=== PATIENT | male | born 1985 | race Caucasian/White ===

== ENCOUNTER 2023-02-21 18:23 | Emergency (ER) | payer BC, SELFPAY ==
[2023-02-21 18:43] VITALS: BP 139/99; PULSE 81; RESP 16; TEMP 36.4; O2SAT 99; BMI 33.8
--- NOTE | 2023-02-21 19:05 | XR_ITS ---
The [address] [address] Patient Name: LEXI WESTBROOK MRN: [id number] date: 1985 Sex: M Assigned Patient Location: ER Current Patient Location: ED.MAIN Accession/Order Number: [id number] Exam Date: 02/21/2023 19:12 Report Date: 02/21/2023 19:55 At the request of: PONCHO CANSECO Procedure: XR hand LT min 3V EXAM: XR hand LT min 3V HISTORY: injury to left hand COMPARISON: None. TECHNIQUE: 3 views of the left hand FINDINGS: No acute fracture is seen. Joint alignment is normal. Joint spaces are preserved. Soft tissues appear unremarkable. XR/XR hand LT min 3V IMPRESSION: No acute fracture or malalignment. Electronically authenticated by: DILLON SYKES Date: 02/21/2023 19:55
--- NOTE | 2023-02-21 19:26 | ED_ITS ---
HPI - Extremity Injury (Upper) General Chief Complaint: Extremity Injury, Upper Stated Complaint: Upper Extremity Injury Time Seen by Provider: 02/21/23 19:22 Source: patient Mode of arrival: walk-in Limitations: no limitations History of Present Illness HPI narrative: 37-year-old male presents for an injury to his left middle finger. It was sustained when he got his finger caught in a dane yesterday. He noted a lot of bruising below the fingernail. The pain is mild. It feels like pressure and it's continuous. No other injury was sustained. He is right-handed. Related Data Home Medications Medication Instructions Recorded Confirmed fluticasone furoate 100 1 inh inhalation Q24H 02/21/23 02/21/23 mcg-vilanterol 25 mcg/dose inhalation powder (Breo Ellipta) montelukast 10 mg tablet 10 mg PO DAILY 02/21/23 02/21/23 omeprazole 20 mg capsule,delayed 20 mg PO DAILY 02/21/23 02/21/23 release Allergies Allergy/AdvReac Type Severity Reaction Status Date / Time No Known Drug Allergies Allergy Verified 02/21/23 18:42 Review of Systems ROS Narrative A ten point review of systems is negative except as noted above. PFSH PFSH Social History Smoking status: Never smoker Exam Narrative Exam Narrative: Nurses note and vital signs reviewed and patient is not hypoxic. General: The patient appears well and in no apparent distress. Patient is resting comfortably in the chair. Skin: Warm, dry, no pallor noted. There is no rash noted. Head: Normocephalic, atraumatic Eye: Normal conjunctiva, no drainage Ears, Nose, Mouth, and Throat: oral mucosa is moist. Nares patent. Cardiovascular: Regular Rate and Rhythm Respiratory: Patient is in no distress, no accessory muscle use Back: non-tender GI: nontender Musculoskeletal: left middle finger has subungual hematoma. No swelling on the finger pad. Neurological: A&O, normal speech Psychiatric: Cooperative Constitutional Vital Signs, click to edit/add: Last Vital Signs Temp 97.5 F L 02/21/23 18:43 Pulse 81 02/21/23 18:43 Resp 16 02/21/23 18:43 BP 139/99 H 02/21/23 18:43 Pulse Ox 99 02/21/23 18:43 O2 Del Method Room Air 02/21/23 18:43 Course Vital Signs Vital signs: Vital Signs Temperature 97.5 F L 02/21/23 18:43 Pulse Rate 81 02/21/23 18:43 Respiratory Rate 16 02/21/23 18:43 Blood Pressure 139/99 H 02/21/23 18:43 Pulse Oximetry 99 02/21/23 18:43 Oxygen Delivery Method Room Air 02/21/23 18:43 Temperature 97.5 F L 02/21/23 18:43 Pulse Rate 81 02/21/23 18:43 Respiratory Rate 16 02/21/23 18:43 Blood Pressure 139/99 H 02/21/23 18:43 Pulse Oximetry 99 02/21/23 18:43 Oxygen Delivery Method Room Air 02/21/23 18:43 MDM - Extremity Injury (Upper) MDM Narrative Medical decision making narrative: X-ray shows no fracture. The subungual hematoma has been drained. Treatment d iagnosis and follow-up were discussed with the patient. Differential Diagnosis Differential diagnosis: Likely other (finger fracture, finger contusion, subungual hematoma) Imaging Data left hand x-ray: Radiologist's impression: Procedure: XR hand LT min 3V EXAM: XR hand LT min 3V HISTORY: injury to left hand COMPARISON: None. TECHNIQUE: 3 views of the left hand FINDINGS: No acute fracture is seen. Joint alignment is normal. Joint spaces are preserved. Soft tissues appear unremarkable. IMPRESSION: No acute fracture or malalignment. Electronically authenticated by: DILLON SYKES Date: 02/21/2023 19:55 Discharge Plan Discharge Chief Complaint: Extremity Injury, Upper Clinical Impression: Subungual hematoma of finger of left hand Patient Disposition: Home, Self-Care Time of Disposition Decision: 20:12 Condition: Good Mode of Transportation: Private Vehicle Prescriptions / Home Meds: No Action fluticasone furoate-vilanterol [Breo Ellipta] 100-25 mcg/dose blister with device 1 inh INHALATION Q24H montelukast 10 mg tablet 10 mg PO DAILY omeprazole 20 mg capsule,delayed release(DR/EC) 20 mg PO DAILY Instructions: Subungual Hematoma (ED) Stand Alone Forms: Portal Instructions Referrals: Fany Bergman [Primary Care Provider] - 1 week Procedures ED Procedure Instructions Procedures Procedures: The following procedure was performed by me. A call bite was carried out to the fingernail of the left 3rd finger an electric cautery device was used to trephinate the nail. Blood was extracted and the patient felt much better. No complications.
== END 2023-02-21 20:37 | disposition home or self-care (01) ==
PROVIDERS: Emergency Provider Emergency Medicine; PCP Nurse Practitioner
DX: S60.132A Contusion of left middle finger with damage to nail, initial encounter (principal); W23.0XXA Caught, crushed, jammed, or pinched between moving objects, initial encounter; Z79.899 Other long term (current) drug therapy
CPT/HCPCS: 11740; 73130; 99283

== ENCOUNTER 2023-07-11 07:55 | Emergency (ER) | payer OTHER, SELFPAY ==
[2023-07-11 08:00] VITALS: BP 138/92; PULSE 90; RESP 18; TEMP 36.4; O2SAT 98; BMI 33.5
--- NOTE | 2023-07-11 08:07 | XR_ITS ---
The [address] [address] Patient Name: LEXI WESTBROOK MRN: [id number] date: 1985 Sex: M Assigned Patient Location: ED.MAIN Current Patient Location: Accession/Order Number: [id number] Exam Date: 07/11/2023 08:15 Report Date: 07/11/2023 08:29 At the request of: PONCHO CANSECO Procedure: XR shoulder LT min 2V EXAM: XR shoulder LT min 2V INDICATION: Pain after lifting weights. COMPARISON: None. TECHNIQUE: Left shoulder, 3 views. FINDINGS: No acute fracture or dislocation. Intact glenohumeral joint. Mild degenerative changes of the acromioclavicular joint. Unremarkable soft tissues. XR/XR shoulder LT min 2V IMPRESSION: 1. No acute osseous abnormality of the left shoulder. 2. Mild degenerative changes of the AC joint. Electronically authenticated by: FANY NEWBY Date: 07/11/2023 08:29
--- NOTE | 2023-07-11 08:08 | ED.UPPEXIN1 ---
HPI - Extremity Injury (Upper) General Chief Complaint: Extremity Injury, Upper Stated Complaint: SHOULDER PAIN Time Seen by Provider: 07/11/23 08:00 Mode of arrival: walk-in History of Present Illness HPI narrative: 37-year-old male presents to the emergency department for left shoulder pain. It started about 2 weeks ago when he was lifting weights at the gym. He points to the anterior left shoulder. He did not fall and nothing hit him in that area. It is going up towards his neck and into the deltoid area as well now. Movement makes it worse. No chest pain or shortness of breath. Related Data Home Medications Medication Instructions Recorded Confirmed fluticasone furoate 100 1 inh inhalation Q24H 02/21/23 02/21/23 mcg-vilanterol 25 mcg/dose inhalation powder (Breo Ellipta) montelukast 10 mg tablet 10 mg PO DAILY 02/21/23 02/21/23 omeprazole 20 mg capsule,delayed 20 mg PO DAILY 02/21/23 02/21/23 release Previous Rx's Medication Instructions Recorded ibuprofen 800 mg tablet 800 mg PO Q8H PRN pain #20 tabs 07/11/23 methocarbamol 500 mg tablet 500 mg PO Q8H PRN pain #20 tabs 07/11/23 Allergies Allergy/AdvReac Type Severity Reaction Status Date / Time No Known Drug Allergies Allergy Verified 02/21/23 18:42 Review of Systems ROS Narrative A ten point review of systems is negative except as noted above. PFSH PFSH Social History Smoking status: Never smoker Exam Narrative Exam Narrative: Nurses note and vital signs reviewed and patient is not hypoxic. General: The patient appears well and in no apparent distress. Patient is resting comfortably on cart. Skin: Warm, dry, no pallor noted. There is no rash noted. Head: Normocephalic, atraumatic Eye: Normal conjunctiva, no drainage Ears, Nose, Mouth, and Throat: oral mucosa is moist. Nares patent. Cardiovascular: Regular Rate and Rhythm Respiratory: Patient is in no distress, no accessory muscle use, lungs are clear to auscultation, no wheezing, rales or rhonchi Back: non-tender including the cervical spine GI: Soft and nontender Musculoskeletal: The left shoulder has no bruise or swelling or erythema. He has some mild tenderness to palpation anteriorly. It has full range of motion. Radial pulse 2+ and fingers have full range of motion. Neurological: A&O, normal speech Psychiatric: Cooperative Constitutional Vital Signs, click to edit/add: Last Vital Signs Temp 97.6 F 07/11/23 08:00 Pulse 90 07/11/23 08:00 Resp 18 07/11/23 08:00 BP 138/92 H 07/11/23 08:00 Pulse Ox 98 07/11/23 08:00 O2 Del Method Room Air 07/11/23 08:00 Course Vital Signs Vital signs: Vital Signs Temperature 97.6 F 07/11/23 08:00 Pulse Rate 90 07/11/23 08:00 Respiratory Rate 18 07/11/23 08:00 Blood Pressure 138/92 H 07/11/23 08:00 Pulse Oximetry 98 07/11/23 08:00 Oxygen Delivery Method Room Air 07/11/23 08:00 Temperature 97.6 F 07/11/23 08:00 Pulse Rate 90 07/11/23 08:00 Respiratory Rate 18 07/11/23 08:00 Blood Pressure 138/92 H 07/11/23 08:00 Pulse Oximetry 98 07/11/23 08:00 Oxygen Delivery Method Room Air 07/11/23 08:00 MDM - Extremity Injury (Upper) MDM Narrative Medical decision making narrative: X-ray findings are discussed with the patient. He will be treated symptomatically and he was given an appointment to see Dr. Clayton tomorrow. Treatment diagnosis and follow-up were discussed with the patient. Differential Diagnosis Differential diagnosis: Likely other (Shoulder sprain, shoulder strain, shoulder fracture, degenerative arthritis) Imaging Data Left shoulder: Radiologist's impression: ITS Impressions Shoulder X-Ray 07/11/23 08:07 IMPRESSION: 1. No acute osseous abnormality of the left shoulder. 2. Mild degenerative changes of the AC joint. Electronically authenticated by: FANY NEWBY Date: 07/11/2023 08:29 Discharge Plan Discharge Chief Complaint: Extremity Injury, Upper Clinical Impression: Acute shoulder pain Patient Disposition: Home, Self-Care Time of Disposition Decision: 08:38 Condition: Good Mode of Transportation: Private Vehicle Prescriptions / Home Meds: New ibuprofen 800 mg tablet 800 mg PO Q8H PRN (Reason: pain) Qty: 20 0RF methocarbamol 500 mg tablet 500 mg PO Q8H PRN (Reason: pain) Qty: 20 0RF No Action fluticasone furoate-vilanterol [Breo Ellipta] 100-25 mcg/dose blister with device 1 inh INHALATION Q24H montelukast 10 mg tablet 10 mg PO DAILY omeprazole 20 mg capsule,delayed release(DR/EC) 20 mg PO DAILY Instructions: Shoulder Pain (ED) Additional Instructions: You have an appointment with Dr. Clayton on July 12 at 11 AM. Stand Alone Forms: Portal Instructions Referrals: Fany Bergman NP [Primary Care Provider] - 1 week
== END 2023-07-11 08:47 | disposition home or self-care (01) ==
PROVIDERS: Emergency Provider Emergency Medicine; PCP Nurse Practitioner
DX: M25.512 Pain in left shoulder (principal); Z79.899 Other long term (current) drug therapy
CPT/HCPCS: 73030; 99283

== ENCOUNTER 2023-12-04 16:42 | Emergency (ER) | payer OTHER, SELFPAY ==
[2023-12-04 16:50] VITALS: BP 142/87; PULSE 72; TEMP 36.8; O2SAT 100; BMI 32.5
--- NOTE | 2023-12-04 16:57 | PC.NURSE ---
top back left tooth has a small black area to the inside. gum does not appear inflamed and no drainage. left cheek is slightly swelling and pt reports this is painful.
--- NOTE | 2023-12-04 17:09 | ED.DENTAL1 ---
HPI - Dental/Oral General Chief complaint: Dental/Oral Stated complaint: Dental Pain, Facial Swelling Time Seen by Provider: 12/04/23 17:03 Source: patient Mode of arrival: walk-in History of Present Illness HPI Narrative: Patient presenting to us with a dental pain mostly in the left upper tooth he mentioned that the pain is radiating to his left ear as well as his maxillary area, he denies any fall trauma or any other concerns he did mention that he is supposed to see his dentist next week Related Data Home Medications ?Medication ?Instructions ?Recorded ?Confirmed montelukast 10 mg tablet 10 mg PO DAILY 02/21/23 12/04/23 Previous Rx's ?Medication ?Instructions ?Recorded amoxicillin 875 mg-potassium 1 tab PO Q12H #14 tabs 12/04/23 clavulanate 125 mg tablet Allergies Allergy/AdvReac Type Severity Reaction Status Date / Time No Known Drug Allergies Allergy Verified 02/21/23 18:42 Review of Systems ROS Status of ROS 10 or more systems reviewed and unremarkable except as noted in history and below PFSH PFSH Social History Smoking status: Never smoker Exam Narrative Exam Narrative: Dental exam showed that the patient have a good dental hygiene although he does have inflamed gum just above the tooth #13 with mild decay and the patient have some tenderness upon palpation of the maxillary area with no significant swelling The patient otherwise showed no acute pathology Nurses notes and vital signs reviewed and patient is not hypoxic. General: Well-appearing and in no apparent distress. Skin: Warm, dry, no pallor noted. No rash. Head: Normocephalic, atraumatic. Neck: Supple, non-tender. Eye: Pupils are equal, round and EOMI. No scleral icterus. Ears, Nose, Mouth, and Throat: TM are clear, no nasal mucosal hypertrophy. Oral mucosa is moist, no posterior oropharynx erythema, uvula is mid-line Cardiovascular: Regular Rate and Rhythm without murmur, gallop or rub. Respiratory: No accessory muscle use or respiratory distress. Lungs are clear to auscultation, no wheezing, rales or rhonchi Chest Wall: no tenderness Back: No midline thoracic or lumbar vertebral tenderness. No CVA tenderness . Neurological: A&O x4. No cranial nerve dysfunction observed. No truncal ataxia. Moves all extremities. Sensation intact. Psychiatric: Cooperative and interactive. Normal mood and affect. Constitutional Vital Signs, click to edit/add: Last Vital Signs Temp 98.2 F 12/04/23 16:50 Pulse 72 12/04/23 16:50 Resp 14 12/04/23 16:50 BP 142/87 H 12/04/23 16:50 Pulse Ox 100 12/04/23 16:50 O2 Del Method Room Air 12/04/23 16:50 Course Vital Signs Vital signs: Vital Signs Temperature 98.2 F 12/04/23 16:50 Pulse Rate 72 12/04/23 16:50 Respiratory Rate 14 12/04/23 16:50 Blood Pressure 142/87 H 12/04/23 16:50 Pulse Oximetry 100 12/04/23 16:50 Oxygen Delivery Method Room Air 12/04/23 16:50 Temperature 98.2 F 12/04/23 16:50 Pulse Rate 72 12/04/23 16:50 Respiratory Rate 12/04/23 16:50 Blood Pressure 142/87 H 12/04/23 16:50 Pulse Oximetry 100 12/04/23 16:50 Oxygen Delivery Method Room Air 12/04/23 16:50 MDM - Dental/Oral MDM Narrative Medical decision making narrative: The patient right now presented with a dental pain mostly secondary to dental infection Patient was treated in the ER with a dose of Toradol and he is to continue using ibuprofen at home Patient also will be treated with local numbing medication in the ER discharged home with Augmentin Patient to make sure he follow-up with his dentist The patient is to follow up with primary care physician in next 2-3 days or to return to the emergency department should any of the signs or symptoms worsen or new symptoms develop. The patient agrees with the following Diagnosis and Treatment plan and the patient will be discharged home. Discharge Plan Discharge Stand Alone Forms: Portal Instructions Chief Complaint: Dental/Oral Clinical Impression: Dental abscess Patient Disposition: Home, Self-Care Time of Disposition Decision: 17:12 Condition: Good Prescriptions / Home Meds: New amoxicillin-pot clavulanate 875-125 mg tablet 1 tab PO Q12H Qty: 14 0RF No Action montelukast 10 mg tablet 10 mg PO DAILY Print Language: Beninese Instructions: Dental Abscess (ED) Referrals: Fany Bergman NP [Primary Care Provider] - 1 week
[2023-12-04] MEDS: BENZOCAINE 30 ML, lidocaine HCL 15 ML MM (17:36)
[2023-12-04] MEDS: KETOROLAC TROMETHAMINE 60 MG/2 ML VIAL IM (17:37)
[2023-12-04] MEDS: AMOXICILLIN/POTASSIUM CLAV 1 TAB TABLET PO (17:38)
[2023-12-04 17:44] VITALS: BP 137/100; PULSE 82; O2SAT 98
== END 2023-12-04 17:45 | disposition home or self-care (01) ==
PROVIDERS: Emergency Provider Emergency Medicine; PCP Nurse Practitioner
DX: K04.7 Periapical abscess without sinus (principal)
CPT/HCPCS: 96372; 99284; J1885

== ENCOUNTER 2024-02-16 20:35 | Emergency (ER) | payer OTHER, SELFPAY ==
[2024-02-16 20:38] VITALS: BP 158/98; PULSE 100; TEMP 36.6; O2SAT 98; BMI 34.5
--- OUTSIDE RECORDS SUMMARY | 2024-02-16 20:47 | XMS_ITS | CCD ---
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 Name Role Phone NO FAMILY PHYSICIAN Primary Care Unavailable Nubia Bello Admitting Unavailable Nubia Bello Attending Unavailable AICHHOLZ, TERRESTRIAL ECOLOGIST ALISIA Primary Care Unavailable AICHHOLZ, TERRESTRIAL ECOLOGIST ALISIA Admitting Unavailable AICHHOLZ, TERRESTRIAL ECOLOGIST ALISIA Attending Unavailable AICHHOLZ, TERRESTRIAL ECOLOGIST ALISIA Consulting Unavailable AICHHOLZ, TERRESTRIAL ECOLOGIST ALISIA Primary Care Unavailable AICHHOLZ, TERRESTRIAL ECOLOGIST ALISIA Admitting Unavailable AICHHOLZ, TERRESTRIAL ECOLOGIST ALISIA Attending Unavailable AICHHOLZ, TERRESTRIAL ECOLOGIST ALISIA Consulting Unavailable DR HEBER BANUELOS Consulting Unavailable AICHHOLZ, TERRESTRIAL ECOLOGIST ALISIA Admitting Unavailable AICHHOLZ, TERRESTRIAL ECOLOGIST ALISIA Attending Unavailable AICHHOLZ, TERRESTRIAL ECOLOGIST ALISIA Consulting Unavailable AICHHOLZ, TERRESTRIAL ECOLOGIST ALISIA Primary Care Unavailable SY COTTON Consulting Unavailable AICHHOLZ, TERRESTRIAL ECOLOGIST ALISIA Admitting Unavailable AICHHOLZ, TERRESTRIAL ECOLOGIST ALISIA Primary Care Unavailable AICHHOLZ, TERRESTRIAL ECOLOGIST ALISIA Attending Unavailable AICHHOLZ, TERRESTRIAL ECOLOGIST ALISIA Consulting Unavailable AICHHOLZ, TERRESTRIAL ECOLOGIST ALISIA Admitting Unavailable AICHHOLZ, TERRESTRIAL ECOLOGIST ALISIA Attending Unavailable AICHHOLZ, TERRESTRIAL ECOLOGIST ALISIA Primary Care Unavailable KAITLYNN, ANGÉLICA Admitting Unavailable ANGÉLICA CALDERÓN Attending Unavailable KAITLYNN, ANGÉLICA Consulting Unavailable AICHHOLZ, TERRESTRIAL ECOLOGIST ALISIA Primary Care Unavailable LUIS ARMANDO ., REFUGIO Admitting Unavailable LUIS ARMANDO ., REFUGIO Attending Unavailable LUIS ARMANDO ., REFUGIO Consulting Unavailable AICHHOLZ, TERRESTRIAL ECOLOGIST ALISIA Primary Care Unavailable AICHHOLZ, TERRESTRIAL ECOLOGIST ALISIA Admitting Unavailable AICHHOLZ, TERRESTRIAL ECOLOGIST ALISIA Attending Unavailable AICHHOLZ, TERRESTRIAL ECOLOGIST ALISIA Consulting Unavailable AICHHOLZ, TERRESTRIAL ECOLOGIST ALISIA Primary Care Unavailable Freddy CUMMINS Attending Unavailable AICHHOLZ, ALISIA Attending Unavailable AICHHOLZ, ALISIA Attending Unavailable Problems Active Problems Problem Classification Problem Date Documented Date Episodic/Chronic Asthma (1 source) Unspecified asthma, uncomplicated; Translations: [UNSPECIFIED ASTHMA UNCOMPLICATED] Onset: 06-01-2022 Chronic Headache; including migraine (3 sources) Headache; including migraine; Translations: [HEADACHE UNSPECIFIED] Onset: 09-30-2021 Malaise and fatigue (4 sources) Other fatigue; Translations: [OTHER FATIGUE] Onset: 06-16-2022 Episodic Nonspecific chest pain (5 sources) Chest pain, unspecified; Translations: [CHEST PAIN UNSPECIFIED] Onset: 11-19-2021 Episodic Other aftercare (1 source) Other halfway (current) drug therapy; Translations: [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 DRUG THERAPY] Onset: 06-01-2022 Episodic Other hematologic conditions (4 sources) Elevated erythrocyte sedimentation rate; Translations: [ELEVATED ERYTHROCYTE SED RATE] Onset: 06-29-2022 Episodic Other upper respiratory infections (4 sources) Acute pharyngitis, unspecified; Translations: [Acute upper respiratory infection, unspecified] Onset: 05-31-2022 Episodic Unclassified (3 sources) LOW BACK PAIN, UNSPECIFIED; Translations: [LOW BACK PAIN, UNSPECIFIED] Onset: 07-22-2022 Unclassified (1 source) CONTACT W/AND (SUSP) EXPOS COVID-19; Translations: [CONTACT W/AND (SUSP) EXPOS COVID-19] Onset: 06-01-2022 Unclassified (1 source) UNVACCINATED FOR COVID-19; Translations: [UNVACCINATED FOR COVID-19] Onset: 06-01-2022 Past or Other Problems Problem Classification Problem Date Documented Da te Episodic/Chronic Screening and history of mental health and substance abuse codes (1 source) Personal history of nicotine dependence; Translations: [PERSONAL HISTORY OF NICOTINE DEPEND] Onset: 10-02-2021 Episodic Unclassified (1 source) LOW BACK PAIN, UNSPECIFIED; Translations: [LOW BACK PAIN, UNSPECIFIED] Onset: 07-17-2022 Viral infection (1 source) Viral infection, unspecified; Translations: [VIRAL INFECTION UNSPECIFIED] Onset: 10-02-2021 Episodic Results Test Name Value Interpretation Reference Range Facility Registrationon 04-26-2023 Registration [id number]# 1.00TIFF Normal [facility] Consent for Treatmenton Consent for Treatment [id number]# 1.00TIFF Normal [facility] XR LSPINE 2_3 VIEWSon 2022 XR LSPINE 2_3 VIEWS EXAMINATION: XR LSPINE 2_3 VIEWS HISTORY: Low back pain , chronic; right knee pain COMPARISON: No relevant comparison available. FINDINGS: BONES: Mild degenerative changes of facet joints at L4-L5 and L5-S1. No significant spondylosis, scoliosis, fracture, or visible bony lesion. DISC SPACES: No significant disc height narrowing, subluxation, or endplate abnormality. PARASPINOUS: Negative. No paraspinous abnormality is seen. OTHER: Negative. IMPRESSION: 1. No appreciable disc space narrowing or degenerative disc disease. 2. Minimal degenerative facet arthropathy of lower lumbar spine. Electronically authenticated by: HEBER BANUELOS Date: 2022-07-17 12:44 Normal [facility] BARTOLOME by IFAon 07-02-2022 Antinuclear Antibodies, IFA Negative Normal [facility] Comment on above: Result Comment: Nega tive <1:80 Borderline 1:80 Positive >1:80 ICAP nomenclature: AC-0 For more information about Hep-2 cell patterns use ANApatterns.org, the official website for the International Consensus on Antinuclear Antibody (BARTOLOME) Patterns (ICAP). Performed By: #### S EDR #### [facility] [address] [place] [address] Dr. Raman Xie ANTISTREPTOLYSIN O AB (ASO)o n 06-30-2022 Antistreptolysin O Ab 797.3 IU/mL Critically high 0.0-200. 0 [facility] Comment on above: Result Comment: Resu lts confirmed on dilution. Performed By: #### E RUR #### [facility] [address] [address] [address] Raman Xie RHEUMATOID FACTORon 06-30-19 23 RA Latex Turbid. <10.0 Normal <14.0 [facility] Comment on above: Performed By: #### R F #### [facility] [address] [address] [address] Raman Xie SED RATE WESTERGRENon 2022 SED RATE 18 mm/hr Critically high <=15 [facility] Comment on above: Performed By: #### S EDR #### [facility] [address] [place] [address] Dr. Raman Xie URIC ACID SERUMon 06-29-2022 Urate [Mass/Vol] 6.2 mg/dL Normal 3.5-7.2 [facility] Comment on above: Performed By: #### E RUR #### [facility] [address] [place] [address] Dr. Raman Xie CBC AUTO DIFFon 06-16-2022 BASO # 0.1 103/ul Normal 0.0-0.1 [facility] Comment on above: Performed By: #### C BC #### [facility] [address] [place] [address] Dr. Raman Xie Basophils/100 WBC (Bld) 0.8 % Normal 0.2-2.0 [facility] Comment on above: Performed By: #### C BC #### [facility] [address] [place] [address] Dr. Raman Xie EO # 0.1 103/ul Normal 0.0-0.7 [facility] Comment on above: Performed By: #### C BC #### [facility] [address] [place] [address] Dr. Raman Xie Eosinophils/100 WBC (Bld) 1.3 % Normal 0.9-7.0 [facility] Comment on above: Performed By: #### C BC #### [facility] [address] [place] [address] Dr. Raman Xie Erythrocyte distribution width (RBC) [Ratio] 13.1 % Normal 11.0-15.0 [facility] Comment on above: Performed By: #### C BC #### [facility] [address] [place] [address] Dr. Raman Xie Hematocrit (Bld) [Volume fraction] 44.3 % Normal 42.0-54.0 [facility] Comment on above: Performed By: #### C BC #### [facility] [address] [place] [address] Dr. Raman Xie Hemoglobin (Bld) [Mass/Vol] 14.9 g/dL Normal 14.0-18.0 [facility] Comment on above: Performed By: #### C BC #### [facility] [address] [place] [address] Dr. Raman Xie IG # 0.03 10e3/ul Normal 0.00-0.03 [facility] Comment on above: Performed By: #### C BC #### [facility] [address] [place] [address] Dr. Raman Xie IG % 0.3 % Normal 0.0-0.5 [facility] Comment on above: Performed By: #### C BC #### [facility] [address] [place] [address] Dr. Raman Xie LYMPH # 2.4 103/ul Normal 1.2-3.8 [facility] Comment on above: Performed By: #### C BC #### [facility] [address] [place] [address] Dr. Raman Xie Lymphocytes/100 WBC (Bld) 23.3 % Normal 20.5-60.0 [facility] Comment on above: Performed By: #### C BC #### [facility] [address] [place] [address] Dr. Raman Xie MANUAL DIFF REQ NO Normal [facility] Comment on above: Performed By: #### C BC #### [facility] [address] [place] [address] Dr. Raman Xie MCH (RBC) [Entitic mass] 30.4 pg Normal 25.9-34.0 [facility] Comment on above: Performed By: #### C BC #### [facility] [address] [place] [address] Dr. Raman Xie MCHC (RBC) [Mass/Vol] 33.6 g/dL Normal 29.9-35.2 [facility] Comment on above: Performed By: #### C BC #### [facility] [address] [place] [address] Dr. Raman Xie MCV (RBC) [Entitic vol] 90.4 fL Normal 80.0-94.0 [facility] Comment on above: Performed By: #### C BC #### [facility] [address] [place] [address] Dr. Raman Xie MONO # 0.7 103/ul Normal 0.3-0.8 [facility] Comment on above: Performed By: #### C BC #### [facility] [address] [place] [address] Dr. Raman Xie Monocytes/100 WBC (Bld) 6.9 % Normal 1.7-12.0 [facility] Comment on above: Performed By: #### C BC #### [facility] [address] [place] [address] Dr. Raman Xie NEUT # 7.0 103/ul Critically high 1.4-6.5 [facility] Comment on above: Performed By: #### C BC #### [facility] [address] [place] [address] Dr. Raman Xie Neutrophils/100 WBC (Bld) 67.4 % Normal 43.0-75.0 [facility] Comment on above: Performed By: #### C BC #### [facility] [address] [place] [address] Dr. Raman Xie Platelet mean volume (Bld) [Entitic vol] 10.7 fL Normal 9.5-13.5 [facility] Comment on above: Performed By: #### C BC #### [facility] [address] [place] [address] Dr. Raman Xie PLT 350 103/ul Normal 150-450 [facility] Comment on above: Performed By: #### C BC #### [facility] [address] [place] [address] Dr. Raman Xie RBC 4.90 106/ul Normal 4.70-6.10 [facility] Comment on above: Performed By: #### C BC #### [facility] [address] [place] [address] Dr. Raman Xie WBC 10.4 103/ul Normal 4.0-11.0 [facility] Comment on above: Performed By: #### C BC #### [facility] [address] [place] [address] Dr. Raman Xie CRPon 06-16-2022 CRP 0.5 mg/dL Normal <=1.0 [facility] Comment on above: Performed By: #### E RUR #### [facility] [address] [place] [address] Dr. Raman Xie FREE T4on 06-16-2022 Free T4 [Mass/Vol] 0.95 ng/dL Normal 0.76-1.46 [facility] Comment on above: Performed By: #### F T4, IRON, VITB12 #### [facility] [address] [place] [address] Dr. Raman Xie IRONon 06-16-2022 Iron [Mass/Vol] 81.0 ug/dL Normal 65.0-175.0 [facility] Comment on above: Performed By: #### F T4, IRON, VITB12 #### [facility] [address] [place] [address] Dr. Raman Xie PROF 14(COMP METB)on 023 Albumin [Mass/Vol] 3.7 g/dL Normal 3.4-5.0 [facility] Comment on above: Performed By: #### E RUR #### [facility] [address] [place] [address] Dr. Raman Xie Albumin/Globulin [Mass ratio] 0.8 {ratio} Normal [facility] Comment on above: Performed By: #### E RUR #### [facility] [address] [place] [address] Dr. Raman Xie ALP [Catalytic activity/Vol] 153 U/L Critically high 46-116 [facility] Comment on above: Performed By: #### E RUR #### [facility] [address] [place] [address] Dr. Raman Xie ALT [Catalytic activity/Vol] 31 U/L Normal 16-63 [facility] Comment on above: Performed By: #### E RUR #### [facility] [address] [address] [address] Raman Xie Anion gap [Moles/Vol] 11.1 mmol/L Normal [facility] Comment on above: Performed By: #### E RUR #### [facility] [address] [address] [address] Raman Xie AST [Catalytic activity/Vol] 18 U/L Normal 15-37 [facility] Comment on above: Performed By: #### E RUR #### [facility] [address] [place] [address] Dr. Raman Xie Bilirubin [Mass/Vol] 0.2 mg/dL Normal 0.2-1.0 [facility] Comment on above: Performed By: #### E RUR #### [facility] [address] [place] [address] Dr. Raman Xie Calcium [Mass/Vol] 9.0 mg/dL Normal 8.5-10.1 [facility] Comment on above: Performed By: #### E RUR #### [facility] [address] [place] [address] Dr. Raman Xie Chloride [Moles/Vol] 101 mmol/L Normal 98-107 [facility] Comment on above: Performed By: #### E RUR #### [facility] [address] [place] [address] Dr. Raman Xie CO2 [Moles/Vol] 30.7 mmol/L Normal 21.0-32.0 [facility] Comment on above: Performed By: #### E RUR #### [facility] [address] [place] [address] Dr. Raman Xie Creatinine [Mass/Vol] 0.84 mg/dL Normal 0.70-1.30 [facility] Comment on above: Performed By: #### E RUR #### [facility] [address] [place] [address] Dr. Raman Xie EGFR-AF ZAMBIAN >60 Normal >=60 [facility] Comment on above: Performed By: #### E RUR #### [facility] [address] [place] [address] Dr. Raman Xie EGFR-NON AF ZAMBIAN >60 Normal >=60 [facility] Comment on above: Performed By: #### E RUR #### [facility] [address] [place] [address] Dr. Raman Xie Globulin (S) [Mass/Vol] 4.6 g/dL Normal [facility] Comment on above: Performed By: #### E RUR #### [facility] [address] [place] [address] Dr. Raman Xie Glucose [Mass/Vol] 102 mg/dL Normal 74-106 [facility] Comment on above: Performed By: #### E RUR #### [facility] [address] [place] [address] Dr. Raman Xie Potassium [Moles/Vol] 3.8 mmol/L Normal 3.5-5.1 [facility] Comment on above: Performed By: #### E RUR #### [facility] [address] [place] [address] Dr. Raman Xie Protein [Mass/Vol] 8.3 g/dL Critically high 6.4-8.2 [facility] Comment on above: Performed By: #### E RUR #### [facility] [address] [place] [address] Dr. Raman Xie Sodium [Moles/Vol] 139 mmol/L Normal 136-145 [facility] Comment on above: Performed By: #### E RUR #### [facility] [address] [place] [address] Dr. Raman Xie Urea nitrogen [Mass/Vol] 18.0 mg/dL Normal 7.0-18.0 [facility] Comment on above: Performed By: #### E RUR #### [facility] [address] [place] [address] Dr. Raman Xie Urea nitrogen/Creatinine [Mass ratio] 21.4 mg/mg Normal [facility] Comment on above: Performed By: #### E RUR #### [facility] [address] [place] [address] Dr. Raman Xie SED RATE WESTERGRENon 2022 SED RATE 31 mm/hr Critically high <=15 [facility] Comment on above: Performed By: #### S EDR #### [facility] [address], [place] [address] Dr. Raman Xie TSHon 06-16-2022 TSH 2.022 uIU/mL Normal 0.358-3.740 [facility] Comment on above: Performed By: #### E RUR #### [facility] [address] [place], [place] [address] Dr. Raman Xie VITAMIN B12on 06-16-2022 Cobalamin (Vitamin B12) [Mass/Vol] 1263.0 pg/mL Critically high 193.0-986.0 [facility] Comment on above: Performed By: #### F T4, IRON, VITB12 #### [facility] [address] [place], [place] [address] Dr. Raman Xie XR CHEST 2 Von 06-16-2022 XR CHEST 2 V EXAM: XR CHEST 2 V HISTORY: Chest pain COMPARISON: 07/12/2020 TECHNIQUE: Upright PA and lateral chest x-ray FINDINGS: The heart is not enlarged and the vasculature is not distended. No acute infiltrate, effusion or pneumothorax is identified. The osseous structures are grossly intact. IMPRESSION: No acute infiltrate or evidence of cardiac decompensation. The overall appearance of the chest is unchanged. Electronically authenticated by: SY COTTON Date: 2022-06-16 17:09 Normal [facility] Covid-19 PCR (CVDTB)on SARS-CoV-2 (COVID-19) RNA ANKIT+probe Ql (Unsp spec) Not detected Normal NOT DETECTED [facility] Comment on above: Result Comment: When diagnostic testing is negative, the possibility of a false negative should be considered in the context of a patient's recent exposures and the presence of clinical signs and symptoms consistent with SARS-CoV-2. This test is not yet approved or cleared by the [place] FDA. When there are no FDA-approved or cleared tests available, and other criteria are met, FDA can make tests available under an emergency access mechanism called an Emergency Use Authorization (EUA). The EUA for this test is supported by the Ticket Dispenser Changer of Health and Human Service's declaration that circumstances exist to justify the emergency use of in vitro diagnostics for the detection and/or diagnosis of the virus that causes COVID-19. This EUA will remain in effect for the duration of the COVID-19 declaration justifying emergency of IVDs, unless it is terminated or revoked by the FDA (after which the test may no longer be used). Performed By: #### S EDR #### [facility] [address] [place] [address] Dr. Raman Xie GROUP A STREP CULTUREon S. pyogenes Ag Ql (Unsp spec) Culture Observations: NEGATIVE FOR GROUP A STREPTOCOCCUS. Normal [facility] Comment on above: Performed By: #### S EDR #### [facility] [address] [place] [address] Dr. Raman Xie INFLUENZA A AND B AGon 05-31 INFLUANE SEE BELOW Normal [facility] Comment on above: Result Comment: Nega tive for Flu A protein angiten. Infection due to Flu A cannot be ruled out. Flu A angiten in the sample may be below the detection limit of the test. Performed By: #### S EDR #### [facility] [address] [place] [address] Dr. Raman Xie INFLUBNEGH SEE BELOW Normal [facility] Comment on above: Result Comment: Nega tive for Flu B protein antigen. Infection due to Flu B cannot be ruled out. Flu B antigen in the sample may be below the detection limit of the test. Performed By: #### S EDR #### [facility] [address] [place] [address] Dr. Raman Xie INFLUENZA A AG Negative Normal NEGATIVE SEE COMMENT [facility] Comment on above: Performed By: #### S EDR #### [facility] [address] [place] [address] Dr. Raman Xie INFLUENZA B AG Negative Normal NEGATIVE SEE COMMENT [facility] Comment on above: Performed By: #### S EDR #### [facility] [address] [place] [address] Dr. Raman Xie STREPT SCREENon 05-31-2022 STREP SCREEN A Negative Normal NEGATIVE [facility] Comment on above: Performed By: #### S EDR #### [facility] [address] [place] [address] Dr. Raman Xie ECHOCARDIO M/2D COMPLETEon 0 11-19-2021 ECHOCARDIO M/2D COMPLETE Patient: LEXI WESTBROOK Exam Date: 11/19/2021 : 1985 Gender:M Ordering : ADIN KHALIL [facility] Admission #: [id number] Family : Order #: [id number] CLICK HERE TO VIEW EXAM ECHOCARDIOGRAM REPORT PROCEDURE: CARDIO PULMONARY ECHOCARDIO M/2D COMP INDICATIONS: Chest pain COMPARISON: None. DESCRIPTION: COMPLETE ECHOCARDIOGRAM Real-time transthoracic echocardiography with 2D, M-mode, spectral and color flow Doppler performed. QUALITY: Technical quality was good. LEFT VENTRICLE: Normal chamber size. Normal left ventricular wall thickness. Global left ventricular systolic function is normal. LV EF: Calculated left ventricular ejection fraction is 67%. DIASTOLIC: Normal diastolic function. ATRIAL SEPTUM: LEFT ATRIUM: Normal chamber size. RIGHT ATRIUM: Normal chamber size. RIGHT VENTRICLE: Normal chamber size. Normal right ventricular systolic function. TRICUSPID VALVE: Normal mobility and thickness. No stenosis with no regurgitation. Unable to assess right-sided pressures due to lack of measurable tricuspid regurgitation jet. MITRAL VALVE: Normal mobility and thickness. No mitral valve prolapse. No evidence of mitral valve stenosis. There is no mitral annular calcification. No mitral regurgitation. AORTIC VALVE: Normal trileaflet appearance. No visible sclerosis. Normal leaflet mobility. No evidence of aortic valve stenosis. No aortic regurgitation. AORTIC ROOT: Normal diameter and appearance. PULMONIC VALVE: Normal thickness and mobility. No stenosis. No regurgitation. PERICARDIUM: No evidence of pericardial effusion. IVC: Collapses with inspirations. Normal size. PLEURA: CONCLUSION: 1. Normal ventricular function. LVEF is 65 to 70%. 2. No significant valvular dysfunction. 3. Unable to assess right-sided pressures due to lack of measurable tricuspid regurgitation. 4. No pericardial effusion. Adult Echocardiography Procedure Report Left Ventricle LVEDD (3.7 - 5.6 cm): 4.68 cm LVESD (2.2 - 4.0 cm): 2.87 cm LVIVS thickness (0.6 - 1.2 cm): 9.56 mm LVPW thickness (0.5 - 1.0 cm): 9.34 mm e': 13.50 cm/s E - e': 5.20 LVOT Area (cm2): 3.80 cm2 LVOT Diameter 2.20 cm Left Ventricular Ejection Fraction: 65-70 % Left Atrium LA Volume Index (2D A2C): 10.30 ml/m2 Left Atrium Systolic Dimension: 3.30 cm Left Atrium Systolic Area(A2C): 9.71 cm2 Left Atrium Systolic Area(A4C): 12.60 cm2 Left Atrium Systolic Volume(A2C): 57617 mm3 Left Atrium Systolic Volume(A4C): 09357 mm3 Mitral Valve MV E to A Ratio: 1.30 Deceleration Page: 4740 mm/s2 Mitral Valve A-Wave Peak Velocity: 56.30 cm/s Mitral Valve E-Wave Peak Velocity: 70.60 cm/s Right Ventricle RV Internal Diastolic Dimension: 3.26 cm Aorta AO Root Diam: 3.00 cm Aortic Valve AoV Area (Peak Darrin): 3.66 cm2 Aortic Valve Cusp Separation: 1.90 cm Peak Velocity(Antegrade Flow): 92.30 cm/s Peak Gradient(Antegrade Flow): 3 mm[Hg] Tricuspid Valve Pulmonic Valve Peak Velocity: 116.00 cm/s Peak Gradient: 5 mm[Hg] Right Atrium Dictated by: Joe Zhang M.D. on 11/19/2021 at 13:26 Approved by: Joe Zhang M.D. on 11/19/2021 at 13:31 Normal [facility] Covid-19 PCR (CVDTBH)on 09-21 SARS-CoV-2 (COVID-19) RNA ANKIT+probe Ql (Unsp spec) Not detected Normal NOT DETECTED [facility] Comment on above: Result Comment: When diagnostic testing is negative, the possibility of a false negative should be considered in the context of a patient's recent exposures and the presence of clinical signs and symptoms consistent with SARS-CoV-2. This test is not yet approved or cleared by the [place] Food and Drug Administration (FDA). This test was developed by [employer], [place], [place]. The performance characteristics of this test were validated by [facility]. The results are not intended to be used as the sole means for clinical diagnosis or patient management decisions. [facility] is authorized under Clinical Laboratory Improvement Amendments (CLIA) to perform high- complexity testing. This test is not yet approved or cleared by the [place] FDA. When there are no FDA-approved or cleared tests available, and other criteria are met, FDA can make tests available under an emergency access mechanism called an Emergency Use Authorization (EUA). The EUA for this test is supported by the [place] of Health and Human Service's declaration that circumstances exist to justify the emergency use of in vitro diagnostics for the detection and/or diagnosis of the virus that causes COVID-19. This EUA will remain in effect for the duration of the COVID-19 declaration justifying emergency of IVDs, unless it is terminated or revoked by the FDA (after which the test may no longer be used). Performed By: #### E RUR #### [facility] [address] [place] [address] Dr. Raman Xie ER URINE PROFILEon 2 Bilirubin Ql (U) Negative Normal NEGATIVE The [facility] Comment on above: Performed By: #### E RUR #### [facility] [address] [place] [address] Dr. Raman Xie Clarity (U) CLEAR Normal CLEAR [facility] Comment on above: Performed By: #### E RUR #### [facility] [address] [place] [address] Dr. Raman Xie Color (U) LT. YELLOW Normal YELLOW [facility] Comment on above: Performed By: #### E RUR #### [facility] [address] [place] [address] Dr. Raman Xie ERUAHD A micrscopic examination will be performed if indicated. Normal [facility] Comment on above: Performed By: #### E RUR #### [facility] [address] [place] [address] Dr. Raman Xie Glucose Ql (U) Negative Normal NEGATIVE The [facility] Comment on above: Performed By: #### E RUR #### [facility] [address] [place] [address] Dr. Raman Xie Hemoglobin Ql (U) Negative Normal NEGATIVE The [facility] Comment on above: Performed By: #### E RUR #### [facility] [address] [place] [address] Dr. Raman Xie Ketones Ql (U) Negative Normal NEGATIVE [facility] Comment on above: Performed By: #### E RUR #### [facility] [address] [place] [address] Dr. Raman Xie LEUKOCYTES Negative Normal NEGATIVE [facility] Comment on above: Performed By: #### E RUR #### [facility] [address] [place] [address] Dr. Raman Xie Nitrite Ql (U) Negative Normal NEGATIVE [facility] Comment on above: Performed By: #### E RUR #### [facility] [address] [place] [address] Dr. Raman Xie pH (U) 6.0 [pH] Normal 5-9 [facility] Comment on above: Performed By: #### E RUR #### [facility] [address] [place] [address] Dr. Raman Xie SPEC GRAVITY 1.015 Normal 1.005-<=1.025 [facility] Comment on above: Performed By: #### E RUR #### [facility] [address] [place] [address] Dr. Raman Xie UA PROTEIN Negative Normal NEGATIVE/ TRACE [facility] Comment on above: Performed By: #### E RUR #### [facility] [address] [place] [address] Dr. Raman Xie UR MICRO IND NOT INDICATED Normal The [facility] Comment on above: Performed By: #### E RUR #### [facility] [address] [place] [address] Dr. Raman Xie Urobilinogen Qn (U) 0.2 {Ki'U}/dL Normal 0.2 - 1. 0 [facility] Comment on above: Performed By: #### E RUR #### [facility] [address] [place] [address] Dr. Raman Xie INFLUENZA A AND B AGon 10-01 [facility] SEE BELOW Normal [facility] Comment on above: Result Comment: Nega tive for Flu A protein angiten. Infection due to Flu A cannot be ruled out. Flu A angiten in the sample may be below the detection limit of the test. Performed By: #### E RUR #### [facility] [address] [place] [address] Dr. [facility] Normal [facility] Comment on above: Result Comment: Nega tive for Flu B protein antigen. Infection due to Flu B cannot be ruled out. Flu B antigen in the sample may be below the detection limit of the test. Performed By: #### E RUR #### [facility] [address] [place] [address] Dr. Raman Xie INFLUENZA A AG Negative Normal NEGATIVE SEE COMMENT [facility] Comment on above: Performed By: #### E RUR #### [facility] [address] [place] [address] Dr. Raman Xie INFLUENZA B AG Negative Normal NEGATIVE SEE COMMENT [facility] Comment on above: Performed By: #### E RUR #### [facility] [address] [place] [address] Dr. Raman Xie INTERNAL CONTROLS Within Normal Limits Normal Wi thin Normal Limits [facility] Comment on above: Performed By: #### E RUR #### [facility] [address] [place] [address] Dr. Raman Xie CBC AUTO DIFFon 09-30-2021 BASO # 0.0 103/ul Normal 0.0-0.1 [facility] Comment on above: Performed By: #### C BC #### [facility] [address] [place] [address] Dr. Raman Xie Basophils/100 WBC (Bld) 0.3 % Normal 0.2-2.0 [facility] Comment on above: Performed By: #### C BC #### [facility] [address] [place] [address] Dr. Raman Xie EO # 0.1 103/ul Normal 0.0-0.7 [facility] Comment on above: Performed By: #### C BC #### [facility] [address] [address] [address] Raman Xie Eosinophils/100 WBC (Bld) 0.4 % Critically low 0.9-7.0 [facility] Comment on above: Performed By: #### C BC #### [facility] [address] [place] [address] Dr. Raman Xie Erythrocyte distribution width (RBC) [Ratio] 13.0 % Normal 11.0-15.0 [facility] Comment on above: Performed By: #### C BC #### [facility] [address] [place] [address] Dr. Raman Xie Hematocrit (Bld) [Volume fraction] 45.2 % Normal 42.0-54.0 [facility] Comment on above: Performed By: #### C BC #### [facility] [address] [place] [address] Dr. Raman Xie Hemoglobin (Bld) [Mass/Vol] 15.1 g/dL Normal 14.0-18.0 [facility] Comment on above: Performed By: #### C BC #### [facility] [address] [place] [address] Dr. Raman Xie IG # 0.06 10e3/ul Critically high 0.00-0.03 [facility] Comment on above: Performed By: #### C BC #### [facility] [address] [place] [address] Dr. Raman Xie IG % 0.5 % Normal 0.0-0.5 [facility] Comment on above: Performed By: #### C BC #### [facility] [address] [place] [address] Dr. Raman Xie LYMPH # 1.0 103/ul Critically low 1.2-3.8 [facility] Comment on above: Performed By: #### C BC #### [facility] [address] [place] [address] Dr. Raman Xie Lymphocytes/100 WBC (Bld) 7.5 % Critically low 20.5-60.0 [facility] Comment on above: Performed By: #### C BC #### [facility] [address] [place] [address] Dr. Raman Xie MANUAL DIFF REQ NO Normal [facility] Comment on above: Performed By: #### C BC #### [facility] [address] [place] [address] Dr. Raman Xie MCH (RBC) [Entitic mass] 30.4 pg Normal 25.9-34.0 [facility] Comment on above: Performed By: #### C BC #### [facility] [address] [place] [address] Dr. Raman Xie MCHC (RBC) [Mass/Vol] 33.4 g/dL Normal 29.9-35.2 [facility] Comment on above: Performed By: #### C BC #### [facility] [address] [place] [address] Dr. Raman Xie MCV (RBC) [Entitic vol] 91.1 fL Normal 80.0-94.0 [facility] Comment on above: Performed By: #### C BC #### [facility] [address] [place] [address] Dr. Raman Xie MONO # 0.8 103/ul Normal 0.3-0.8 [facility] Comment on above: Performed By: #### C BC #### [facility] [address] [place] [address] Dr. Raman Xie Monocytes/100 WBC (Bld) 6.3 % Normal 1.7-12.0 [facility] Comment on above: Performed By: #### C BC #### [facility] [address] [place] [address] Dr. Raman Xie NEUT # 10.8 103/ul Critically high 1.4-6.5 [facility] Comment on above: Performed By: #### C BC #### [facility] [address] [place] [address] Dr. Raman Xie Neutrophils/100 WBC (Bld) 85.0 % Critically high 43.0-75.0 [facility] Comment on above: Performed By: #### C BC #### [facility] [address] [place] [address] Dr. Raman Xie Platelet mean volume (Bld) [Entitic vol] 10.3 fL Normal 9.5-13.5 [facility] Comment on above: Performed By: #### C BC #### [facility] [address] [place] [address] Dr. Raman Xie PLT 331 103/ul Normal 150-450 [facility] Comment on above: Performed By: #### C BC #### [facility] [address] [place] [address] Dr. Raman Xie RBC 4.96 106/ul Normal 4.70-6.10 [facility] Comment on above: Performed By: #### C BC #### [facility] [address] [place] [address] Dr. Raman Xie WBC 12.7 103/ul Critically high 4.0-11.0 [facility] Comment on above: Performed By: #### C BC #### [facility] [address] [place] [address] Dr. Raman Xie LACTATE/LACTIC ACIDon 2021 Lactate [Moles/Vol] 0.9 mmol/L Normal 0.4-1.9 [facility] Comment on above: Performed By: #### S EDR #### [facility] [address] [place] [address] Dr. Raman Xie PROF 14(COMP METB)on 022 Albumin [Mass/Vol] 3.8 g/dL Normal 3.4-5.0 [facility] Comment on above: Performed By: #### C MP #### [facility] [address] [place] [address] Dr. Raman Xie Albumin/Globulin [Mass ratio] 0.9 {ratio} Normal [facility] Comment on above: Performed By: #### C MP #### [facility] [address] [place] [address] Dr. Raman Xie ALP [Catalytic activity/Vol] 127 U/L Critically high 46-116 [facility] Comment on above: Performed By: #### C MP #### [facility] [address] [address] [address] Raman Xie ALT [Catalytic activity/Vol] 24 U/L Normal 16-63 [facility] Comment on above: Performed By: #### C MP #### [facility] [address] [address] [address] Raman Xie Anion gap [Moles/Vol] 13.2 mmol/L Normal [facility] Comment on above: Performed By: #### C MP #### [facility] [address] [address] [address] Raman Xie AST [Catalytic activity/Vol] 15 U/L Normal 15-37 [facility] Comment on above: Performed By: #### C MP #### [facility] [address] [place] [address] Dr. Raman Xie Bilirubin [Mass/Vol] 0.4 mg/dL Normal 0.2-1.0 [facility] Comment on above: Performed By: #### C MP #### [facility] [address] [place] [address] Dr. Raman Xie Calcium [Mass/Vol] 8.4 mg/dL Critically low 8.5-10.1 [facility] Comment on above: Performed By: #### C MP #### [facility] [address] [place] [address] Dr. Raman Xie Chloride [Moles/Vol] 100 mmol/L Normal 98-107 [facility] Comment on above: Performed By: #### C MP #### [facility] [address] [place] [address] Dr. Raman Xie CO2 [Moles/Vol] 26.4 mmol/L Normal 21.0-32.0 [facility] Comment on above: Performed By: #### C MP #### [facility] [address] [place] [address] Dr. Raman Xie Creatinine [Mass/Vol] 1.09 mg/dL Normal 0.70-1.30 [facility] Comment on above: Performed By: #### C MP #### [facility] [address] [address] [address] Raman Xie EGFR-AF ZAMBIAN >60 Normal >=60 [facility] Comment on above: Performed By: #### C MP #### [facility] [address] [place] [address] Dr. Raman Xie EGFR-NON AF ZAMBIAN >60 Normal >=60 [facility] Comment on above: Performed By: #### C MP #### [facility] [address] [address] [address] Raman Xie Globulin (S) [Mass/Vol] 4.1 g/dL Normal [facility] Comment on above: Performed By: #### C MP #### [facility] [address] [place] [address] Dr. Raman Xie Glucose [Mass/Vol] 125 mg/dL Critically high 74-106 [facility] Comment on above: Performed By: #### C MP #### [facility] [address] [address] [address] Raman Xie Potassium [Moles/Vol] 3.6 mmol/L Normal 3.5-5.1 [facility] Comment on above: Performed By: #### C MP #### [facility] [address] [place] [address] Dr. Raman Xie Protein [Mass/Vol] 7.9 g/dL Normal 6.4-8.2 [facility] Comment on above: Performed By: #### C MP #### [facility] [address] [place] [address] Dr. Raman Xie Sodium [Moles/Vol] 136 mmol/L Normal 136-145 [facility] Comment on above: Performed By: #### C MP #### [facility] [address] [place] [address] Dr. Raman Xie Urea nitrogen [Mass/Vol] 15.0 mg/dL Normal 7.0-18.0 [facility] Comment on above: Performed By: #### C MP #### [facility] [address] [place] [address] Dr. Raman Xie Urea nitrogen/Creatinine [Mass ratio] 13.8 mg/mg Normal [facility] Comment on above: Performed By: #### C MP #### [facility] [address] [address] [address] Raman Xie Complete Blood Count Auto Di ffon 08-23-2018 Basophils #/vol (Bld) 0.1 10*3/uL Normal 0.0-0.2 [facility] Comment on above: Result Comment: PERF ORMED BY: [place] [address] PATHOLOGIST OFFICE COMMUNICATION PROFESSOR MINH DOMINGO M.D. Performed By: #### C BC, CMP #### [address] Basophils/100 WBC (Bld) 1.2 % Normal . [facility] Comment on above: Performed By: #### C BC, CMP #### [address] Eosinophils #/vol (Bld) 0.1 10*3/uL Normal 0.0-0.45 [facility] Comment on above: Performed By: #### C BC, CMP #### [address] Eosinophils/100 WBC (Bld) 1.0 % Normal . [facility] Comment on above: Performed By: #### C BC, CMP #### [address] Erythrocyte distribution width Ratio (RBC) 13.2 % Normal 12.0-14.8 [facility] Comment on above: Performed By: #### C BC, CMP #### [address] Hematocrit Volume Fraction (Bld) 45.6 % Normal 38.8-50.0 [facility] Comment on above: Performed By: #### C BC, CMP #### [address] Hemoglobin mass conc (Bld) 15.2 g/dL Normal 13.0-17.0 [facility] Comment on above: Performed By: #### C BC, CMP #### [facility] [address] Lymphocytes #/vol (Bld) 1.7 10*3/uL Normal 1.00-4.8 [facility] Comment on above: Performed By: #### C BC, CMP #### [facility] [address] Lymphocytes/100 WBC (Bld) 14.2 % Normal . [facility] Comment on above: Performed By: #### C BC, CMP #### [facility] [address] MCH Entitic mass (RBC) 33.4 g/dL Normal 32.5-35.6 [facility] Comment on above: Performed By: #### C BC, CMP #### [address] MCH Entitic mass (RBC) 30.5 pg Normal 27.5-35.2 [facility] Comment on above: Performed By: #### C BC, CMP #### [address] MCV Entitic volume (RBC) 91.5 fL Normal 83.5-101 [facility] Comment on above: Performed By: #### C BC, CMP #### [address] Monocytes #/vol (Bld) 0.7 10*3/uL Normal 0.0-0.8 [facility] Comment on above: Performed By: #### C BC, CMP #### [facility] [address] [place] [address] [place] Monocytes/100 WBC (Bld) 6.0 % Normal . [facility] Comment on above: Performed By: #### C BC, CMP #### [facility] [address] Neutrophils #/vol (Bld) 9.2 10*3/uL High 1.8-7.7 [facility] Comment on above: Performed By: #### C BC, CMP #### [facility] [address] Neutrophils/100 WBC (Bld) 77.6 % Normal . [facility] Comment on above: Performed By: #### C BC, CMP #### [facility] [address] Nucleated RBC/100 WBC Ratio (Bld) 0.0 % Normal 0-0.5 [facility] Comment on above: Performed By: #### C BC, CMP #### [facility] [address] Platelet mean volume Entitic volume (Bld) 8.9 fL Normal 6.6-10.1 [facility] Comment on above: Performed By: #### C BC, CMP #### [facility] [address] Platelets #/vol (Bld) 315 10*3/uL Normal 150-450 [facility] Comment on above: Performed By: #### C BC, CMP #### [address] RBC #/vol (Bld) 4.99 10*6/uL Normal 3.90-5.60 [facility] Comment on above: Performed By: #### C BC, CMP #### [address] WBC #/vol (Bld) 11.9 10*3/uL High 4.5-11.0 [facility] Comment on above: Performed By: #### C BC, CMP #### [address] Comprehensive Metabolic Pane shahida 08-23-2018 Albumin mass conc 4.2 g/dL Normal 3.2-5.5 [facility] Comment on above: Performed By: #### C BC, CMP #### [address] Albumin/Globulin mass ratio 1.2 {ratio} Normal [facility] Comment on above: Performed By: #### C BC, CMP #### [facility] [address] ALP enzyme act/vol 133 U/L High 32-[address] [facility] Comment on above: Performed By: #### C BC, CMP #### [facility] [address] ALT enzyme act/vol 22 U/L Normal 10-[address] [facility] Comment on above: Performed By: #### C BC, CMP #### [facility] [address] AST enzyme act/vol 23 U/L Normal 10-[address] [facility] Comment on above: Performed By: #### C BC, CMP #### [address] Bilirubin mass conc 0.4 mg/dL Normal 0.3-1.2 [facility] Comment on above: Performed By: #### C BC, CMP #### [address] Calcium mass conc 9.0 mg/dL Normal 8.2-10.2 [facility] Comment on above: Performed By: #### C BC, CMP #### [place] [address] [place] Chloride molar conc 102 mmol/L Normal 95-114 [facility] Comment on above: Performed By: #### C BC, CMP #### [facility] [address] [place] [address] [place] CO2 molar conc 26.4 mmol/L Normal 22.0-30.0 [facility] Comment on above: Performed By: #### C BC, CMP #### [place] [address] [place] Creatinine mass conc 140.0202836348 mg/dL Normal [facility] Comment on above: Result Comment: PERF ORMED BY: [place] [address] PATHOLOGIST OFFICE COMMUNICATION PROFESSOR MINH DOMINGO M.D. Performed By: #### C BC, CMP #### [place] [address] [address] Creatinine mass conc 0.93 mg/dL Normal 0.64-1.27 [facility] Comment on above: Performed By: #### C BC, CMP #### [facility] [address] [place] [address] [place] Estimated GFR ( Bless[place] > 60 Normal [facility] Comment on above: Result Comment: GFR estimated reference range: According to KDOQI guidelines, <60 ml/min/1.73m2 is sufficient to diagnose a patient with chronic kidney disease. Performed By: #### C BC, CMP #### [place] [address] [place] Estimated GFR (Non- Am > 60 Normal [facility] Comment on above: Performed By: #### C BC, CMP #### [address] Globulin mass conc (S) 3.5 g/dL Normal [facility] Comment on above: Performed By: #### C BC, CMP #### [place] [address] [place] Glucose mass conc 100 mg/dL Normal 70-100 [facility] Comment on above: Result Comment: [facility] Glucose Reference Range is dependent on time and content of last meal. Glucose of more than 200 mg/dL in a nonstressed, ambulatory subject supports the diagnosis of Diabetes Mellitus. ADA recommended reference range Performed By: #### C BC, CMP #### [place] [address] [place] Potassium molar conc 4.2 mmol/L Normal 3.5-5.1 [facility] Comment on above: Performed By: #### C BC, CMP #### [place] [id number] [place] Protein mass conc 7.7 g/dL Normal 6.1-7.9 [facility] Comment on above: Performed By: #### C BC, CMP #### [place] [id number] [place] Sodium molar conc 139 mmol/L Normal 136-146 [facility] Comment on above: Performed By: #### C BC, CMP #### [facility] [address] Urea nitrogen mass conc 10 mg/dL Normal 02-13 [facility] Comment on above: Performed By: #### C BC, CMP #### [facility] [address] ECG 12 lead ECGon 08-22-2018 ECG 12 lead ECG [facility] [place] [address] [place] [address] Electrocardiograph Report Signed Patient: Lexi Westbrook MR#: [id number] : 1985 Acct:[id number] Age/Sex: 32 / M ADM Date: 08/22/18 Loc: ER Room: Type: [facility] ER Attending Dr: Ordering Provider: Nubia Bello MD Date of Service: 08/22/18 ECG/ECG 12 lead ECG: Neck Pain/Injury Copies to: Test Reason : Blood Pressure : 132/080 mmHG Vent. Rate : 083 BPM Atrial Rate : 083 BPM P-R Int : 144 ms QRS Dur : 076 ms QT Int : 368 ms P-R-T Axes : 065 045 034 degrees QTc Int : 432 ms Normal sinus rhythm Normal ECG No previous ECGs available Confirmed by NUBIA BELLO MD ([id number]) on 08/22/2018 11:09:50 PM Referred By: Electronically Signed By:NUBIA BELLO MD Transcribed By: MUS Dictated By: Nubia Bello MD 08/22/18 1809 Signed By: 08/22/18 2309 [facility] Encounters Encounter Date Encounter Type Care Provider Facility Start: 02-07-2024 End: 02-07-2024 ambulatory ALISIA AICHHOLZ Not Available Start: 01-03-2024 End: 01-03-2024 ambulatory ALISIA AICHHOLZ Not Available Start: 04-23-2023 End: 04-24-2023 ambulatory Freddy MARIA G Facility:[facility] Start: 07-17-2022 End: 07-18-2022 ambulatory TERRESTRIAL ECOLOGIST ALISIA AICHHOLZ Facility:[facility] Start: 06-29-2022 End: 06-30-2022 ambulatory TERRESTRIAL ECOLOGIST ALISIA AICHHOLZ Facility:[facility] Start: 06-16-2022 End: 06-17-2022 ambulatory ADIN KHALIL Facility:[facility] Start: 05-31-2022 End: 05-31-2022 ambulatory REFUGIO Delaney Facility:[facility] Start: 11-19-2021 End: 11-20-2021 ambulatory ADIN KHALIL Facility:[facility] Start: 09-30-2021 End: 10-01-2021 ambulatory ANGÉLICA CALDERÓN Facility:[facility] Start: 09-23-2021 End: 09-24-2021 ambulatory ADIN KHALIL Facility:[facility] Start: 09-04-2021 End: 09-05-2021 ambulatory ADIN KHALIL Facility:[facility] Start: 08-22-2018 End: 08-23-2018 Emergency department patient visit NO FAMILY PHYSICIAN Facility:[facility] Procedures Date Procedure Procedure Detail Performing Clinician Start: 08-23-2018 Throat culture Comment on above: Performed By: #### C UT #### [facility] [address] Payers Date Payer Category Payer Private Health Insurance [id number] 2018 Self-pay 1985 Unknown [id number] 2.16.84 [id number] 1985 Unknown [id number] 2.16.84 [id number] 1985 Unknown [id number] 2.16.84 [id number] 1985 Unknown [id number] 2.16.84 [id number] 1987 Unknown [id number] 2.16.84 [id number] 1987 Unknown [id number] 2.16.84 [id number] 1987 Unknown [id number] 2.16.84 [id number] 1987 Unknown [id number] 2.16.84 [id number] 1987 Unknown [id number] 2.16.84 [id number] 1987 Unknown [id number] 2.16.84 [id number] 1959 Unknown [id number] 1959 Unknown [id number] Unknown [id number] 2.16.840 .[id number] Summary Purpose Family History No Family History Records FoundNo Family History Records FoundNo Family History Records FoundNo Family History Records Found Advance Directives No Advanced Directives Records FoundNo Advanced Directives Records FoundNo Advanced Directives Records FoundNo Advanced Directives Records Found Additional Source Comments (unrecognized sect ion and content) No Status Records FoundNo Status Records FoundNo Status Records FoundNo Status Records Found INFORMATION SOURCE (unrecogn ized section and content) DATE CREATED AUTHOR 08/27/2018 [facility] DATE CREATED AUTHOR AUTHOR'S ORGANIZ ATION 07/24/2022 [facility] DATE CREATED AUTHOR AUTHOR'S ORGANIZ ATION 04/27/2023 [facility] DATE CREATED AUTHOR AUTHOR'S ORGANIZ ATION 02/09/[address] [facility] EPIC FOR RECORDS PERTAINING TO PATIENTS WHO ARE OR HAVE BEEN ENROLLED IN A CHEMICAL DEPENDENCY/SUBSTANCEABUSE PROGRAM, SOME INFORMATION MAY BE OMITTED. This clinical summary was aggregated from multiple sources. Caution should be exercised in using it in the provision of clinical care. This summary normalizes information from multiple sources, and as a consequence, information in this document may materially change the coding, format and clinical context of patient data. In addition, data may be omitted in some cases. CLINICAL DECISIONS SHOULD BE BASED ON THE PRIMARY CLINICAL RECORDS. [employer] provides no warranty or guarantee of the accuracy or completeness of information in this document.
--- NOTE | 2024-02-16 20:48 | XR_ITS ---
The [address] [address] Patient Name: LEXI WESTBROOK MRN: [id number] date: 1985 Sex: M Assigned Patient Location: ER Current Patient Location: Accession/Order Number: [id number] Exam Date: 02/16/2024 20:55 Report Date: 02/16/2024 22:12 At the request of: SANDRA RODRIGUEZ Procedure: XR foot LT min 3V EXAMINATION: XR foot LT min 3V, , 02/16/2024 8:55 PM EDT INDICATION: injury HISTORY: Ordering Provider Reason for Exam: injury Technologist Note: Additional: COMPARISON: None. TECHNIQUE: Left foot x-ray: 3 view(s). FINDINGS: No acute fracture. Joint alignment is anatomic. Joint spaces are preserved. Soft tissues are within normal limits. XR/XR foot LT min 3V IMPRESSION: No acute fracture or traumatic malalignment. Electronically authenticated by: DILLON SYKES Date: 02/16/2024 22:12
--- NOTE | 2024-02-16 20:54 | XR_ITS ---
The [address] [address] Patient Name: LXEI WESTBROOK MRN: [id number] date: 1985 Sex: M Assigned Patient Location: ER Current Patient Location: ER Accession/Order Number: [id number] Exam Date: 02/16/2024 20:55 Report Date: 02/16/2024 22:28 At the request of: SANDRA RODRIGUEZ Procedure: XR ankle LT min 3V XR ankle LT min 3V, 02/16/2024 8:55 PM EDT INDICATION: pain COMPARISON: None. TECHNIQUE: 3 views of the left ankle FINDINGS: No acute fracture or dislocation. The ankle mortise is preserved. No radiopaque foreign body. XR/XR ankle LT min 3V IMPRESSION: 1. No acute fracture or dislocation. Electronically authenticated by: DILLON SYKES Date: 02/16/2024 22:28
--- NOTE | 2024-02-16 20:55 | ED_ITS ---
HPI - Extremity Problem General Chief complaint: Extremity Problem, Nontraumatic Stated complaint: Lower Injury Time Seen by Provider: 02/16/24 20:48 Source: patient Mode of arrival: walk-in History of Present Illness HPI Narrative: Patient is a 38-year-old male who presents to the emergency department for the evaluation of left foot pain. He states he noticed pain in the left lateral foot, dorsal aspect while at work. He denies any specific mechanism of injury or trauma. He states he is now noticing pain around the left heel and into the left ankle. He describes it as a burning pain. He has not had any swelling, bruising, redness. No history of gout or previous surgeries or injuries. No medications prior to arrival. Related Data Home Medications ?Medication ?Instructions ?Recorded ?Confirmed montelukast 10 mg tablet 10 mg PO DAILY 02/21/23 02/16/24 fluticasone furoate 100 1 inh inhalation DAILY 02/16/24 02/16/24 mcg-vilanterol 25 mcg/dose inhalation powder (Breo Ellipta) Previous Rx's ?Medication ?Instructions ?Recorded hydrocodone 5 mg-acetaminophen 325 1 tab PO Q6H PRN pain 2 days #8 02/16/24 mg tablet tabs ketorolac 10 mg tablet 10 mg PO TID PRN pain #10 tabs 02/16/24 Allergies Allergy/AdvReac Type Severity Reaction Status Date / Time No Known Drug Allergies Allergy Verified 02/21/23 18:42 Review of Systems ROS Constitutional Denies: fever or chills Ears, nose, mouth, and throat Denies: throat pain or nasal congestion Respiratory Denies: shortness of breath Gastrointestinal Denies: nausea or vomiting Musculoskeletal Reports: extremity pain; Denies: back pain or neck pain Integumentary/Breast Denies: rash Neurological Denies: numbness in extremities or weakness in extremities Hematologic/Lymphatic Denies: easy bruising or easy bleeding PFSH [facility] Medical History (Updated 02/16/24 @ 21:40 by JANICE Maldonado) Asthma ?J45.909 - Unspecified asthma, uncomplicated (ICD-10) Social History Smoking status: Never smoker Exam Narrative Exam Narrative: Gen.: Awake, alert, in no distress Head: Normocephalic, atraumatic ENT: Moist mucous membranes Respiratory: No respiratory distress Extremities: Tenderness to the dorsal lateral aspect of the left foot, no swelling or erythema noted. No open wounds or drainage. No bony point tenderness of the left ankle. Psych: Normal mood and affect Neuro: No focal neuro deficit Skin: Warm, dry, intact Constitutional Vital Signs, click to edit/add: Last Vital Signs Temp 97.8 F 02/16/24 20:38 Pulse 100 H 02/16/24 20:38 Resp 16 02/16/24 20:38 BP 158/98 H 02/16/24 20:38 Pulse Ox 98 02/16/24 20:38 O2 Del Method Room Air 02/16/24 20:38 Course Vital Signs Vital signs: Vital Signs Temperature 97.8 F 02/16/24 20:38 Pulse Rate 100 H 02/16/24 20:38 Respiratory Rate 16 02/16/24 20:38 Blood Pressure 158/98 H 02/16/24 20:38 Pulse Oximetry 98 02/16/24 20:38 Oxygen Delivery Method Room Air 02/16/24 20:38 Temperature 97.8 F 02/16/24 20:38 Pulse Rate 100 H 02/16/24 20:38 Respiratory Rate 16 02/16/24 20:38 Blood Pressure 158/98 H 02/16/24 20:38 Pulse Oximetry 98 02/16/24 20:38 Oxygen Delivery Method Room Air 02/16/24 20:38 MDM - Extremity (Nontraumatic) MDM Narrative Medical decision making narrative: X-rays of the foot and ankle with no evidence of fracture or dislocation. Patient with no open wounds, redness or evidence of gout or cellulitis. He is neurovascularly intact pre and post Og wrap, postop shoe application. Rest, ice, elevate. Follow-up with podiatry as needed. Short course of analgesics and NSAIDs given for home. Return to the ER if symptoms change or worsen SUPERVISED APC VISIT, PHYSICIAN ATTESTATION: Based on the medical record the care appears appropriate. ? Medical Records Attestation: I reviewed the patient's medical records. Imaging Data XR foot: Attestation: I have reviewed the pertinent imaging results. Radiologist's impression: ITS Impressions Foot X-Ray 02/16/24 20:48 IMPRESSION: No acute fracture or traumatic malalignment. Electronically authenticated by: DILLON Delcid: 02/16/2024 22:12 Ankle X-Ray 02/16/24 20:54 IMPRESSION: 1. No acute fracture or dislocation. Electronically authenticated by: DILLON SYKES Date: 02/16/2024 22:28 Discharge Plan Discharge Chief Complaint: Extremity Problem, Nontraumatic Clinical Impression: Acute pain of left foot Patient Disposition: Home, Self-Care Time of Disposition Decision: 21:40 Condition: Good Prescriptions / Home Meds: New hydrocodone-acetaminophen 5-325 mg tablet 1 tab PO Q6H PRN (Reason: pain) 2 Days Qty: 8 0RF Rx Instructions: M79.672 ketorolac 10 mg tablet 10 mg PO TID PRN (Reason: pain) Qty: 10 0RF No Action montelukast 10 mg tablet 10 mg PO DAILY fluticasone furoate-vilanterol [Breo Ellipta] 100-25 mcg/dose blister with device 1 inh INHALATION DAILY Print Language: Tajik Instructions: Arthralgia (ED) Referrals: Fany Bergman NP [Primary Care Provider] - 1 week Robert Mendiola DPM [Physician] - As needed Discharge Date/Time: 02/16/24 21:55
[2024-02-16] MEDS: KETOROLAC TROMETHAMINE 10 MG TABLET PO (21:03)
[2024-02-16] MEDS: HYDROCODONE/ACET 5-325 MG TABLET 2 TAB PO (21:50)
== END 2024-02-16 21:55 | disposition home or self-care (01) ==
PROVIDERS: Emergency Provider Internal Medicine; PCP Nurse Practitioner
DX: M79.672 Pain in left foot (principal)
CPT/HCPCS: 73610; 73630; 99284

== ENCOUNTER 2024-03-09 13:47 | Outpatient (OUT) | payer OTHER, SELFPAY ==
--- NOTE | 2024-03-09 13:51 | CT_ITS ---
The [address] [address] Patient Name: LEXI WESTBROOK MRN: [id number] date: 1985 Sex: M Assigned Patient Location: CT Current Patient Location: Accession/Order Number: [id number] Exam Date: 03/09/2024 13:55 Report Date: 03/10/2024 07:51 At the request of: SY NAVA Procedure: CT ankle LT wo con EXAMINATION: CT ankle LT wo con HISTORY: Impingement, Lateral Talus Process Fracture COMPARISON: No relevant comparison available. TECHNIQUE: Multi-planar CT images were created without IV contrast. Dose reduction techniques were achieved by using automated exposure control and/or adjustment of mA and/or kV according to patient size and/or use of iterative reconstruction technique. FINDINGS: BONES: No acute fracture or dislocation. No focal lytic or sclerotic changes. No fracture of the lateral talar process is observed SOFT TISSUES: Negative. No visible soft tissue swelling. EFFUSION: None visible. OTHER: Intact anterior talofibular ligament CT/CT ankle LT wo con IMPRESSION: No fracture observed Electronically authenticated by: SINA RAMEY Date: 03/10/2024 07:51
--- OUTSIDE RECORDS SUMMARY | 2024-03-09 13:57 | XMS_ITS | CCD ---
Author Organization [facility] Care Team Providers Care Field Marketing Representative Name Role Phone NO FAMILY PHYSICIAN Primary Care Unavailable Nubia Jefferson Admitting Unavailable Nubia Jefferson Attending Unavailable AICHHOLZ, 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 FANY Primary Care Unavailable AICHHOLZ, 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 FANY Admitting Unavailable AICHHOLZ, 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 FANY Attending Unavailable AICHHOLZ, 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 FANY Consulting Unavailable AICHHOLZ, 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 FANY Primary Care Unavailable AICHHOLZ, 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 FANY Admitting Unavailable AICHHOLZ, 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 FANY Attending Unavailable AICHHOLZ, 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 FANY Consulting Unavailable DR HEBER BANUELOS Consulting Unavailable AICHHOLZ, 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 FANY Admitting Unavailable AICHHOLZ, 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 FANY Attending Unavailable AICHHOLZ, 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 FANY Consulting Unavailable AICHHOLZ, 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 FANY Primary Care Unavailable JAVIER COTTON Consulting Unavailable AICHHOLZ, 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 FANY Admitting Unavailable AICHHOLZ, 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 FANY Primary Care Unavailable AICHHOLZ, 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 FANY Attending Unavailable AICHHOLZ, 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 FANY Consulting Unavailable AICHHOLZ, 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 FANY Admitting Unavailable AICHHOLZ, 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 FANY Attending Unavailable AICHHOLZ, 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 FANY Primary Care Unavailable KAITLYNN, ANGÉLICA Admitting Unavailable KAITLYNN, ANGÉLICA Attending Unavailable KAITLYNN, ANGÉLICA Consulting Unavailable AICHHOLZ, 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 FANY Primary Care Unavailable LUIS ARMANDO ., REFUGIO Admitting Unavailable LUIS ARMANDO ., REFUGIO Attending Unavailable LUIS ARMANDO ., REFUGIO Consulting Unavailable AICHHOLZ, 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 FANY Primary Care Unavailable AICHHOLZ, 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 FANY Admitting Unavailable AICHHOLZ, 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 FANY Attending Unavailable AICHHOLZ, 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 FANY Consulting Unavailable AICHHOLZ, 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 FANY Primary Care Unavailable Freddy CUMMINS Attending Unavailable Dani JOHNSON, Grayson Primary Care Provider [phone] Aichholz STORY EDITOR, Fany Unavailable FANY BERGMAN Attending Unavailable FANY BERGMAN Attending Unavailable FANY BERGMAN Attending Unavailable Medications Current Medications Medication Drug Class(es) Dates Sig (Normalized) Sig (Original) acetaminophen 325 mg / HYDROcodone bitartrate 5 mg oral tablet (3 sources) Opioid Agonist Start: 02-17-2024 take 2 tablets by mouth every six hours as needed for pain HYDROcodone-aceta minophen ([place]) 5-325 MG tablet Take 2 tablets by mouth every 6 (six) hours if needed for severe pain 02/17/2024 Active [id number] actuat albuterol 0.09 mg/actuat metered dose inhaler (6 sources) beta2-Adrenergic Agonist Start: 02-07-2024 End: 03-08-2024 take 2 puff(s) by inhalation every six hours for wheezing albuterol HFA 90 mcg/act inhaler Indications: COVID Inhale 2 puffs every 6 (six) hours if needed for wheezing or shortness of breath 18 g 1 02/07/2024 03/08/2024 Active Start: 06-18-2023 albuterol (2.5 MG/3ML) 0.083% nebulizer solution Take 2.5 mg by nebulization every 6 (six) hours if needed for shortness of breath or wheezing 06/18/2023 Active dexamethasone 6 mg oral tablet (3 sources) Corticosteroid Start: 02-07-2024 End: 02-22-2024 take 1 tablet by mouth once daily dexAMETHasone (Decadron) 6 MG tablet Indications: COVID Take 1 tablet (6 mg) by mouth Daily for 7 days 7 tablet 02/07/2024 02/22/2024 Discontinued (Therapy completed) ketorolac tromethamine 10 mg oral tablet (3 sources) Nonsteroidal Anti-inflammatory Drug, Cyclooxygenase Inhibitor Start: 02-17-2024 take 1 tablet by mouth every eight hours as needed for pain ketorolac (Toradol) 10 MG tablet 10 mg every 8 (eight) hours if needed for moderate pain 02/17/2024 Active montelukast 10 mg oral tablet (3 sources) Leukotriene Receptor Antagonist Start: 01-03-2024 End: 04-02-2024 take 1 tablet by mouth at bedtime montelukast (Singulair) 10 MG tablet Indications: Mild persistent asthma with status asthmaticus (CMS/HCC) Take 1 tablet (10 mg) by mouth at bedtime 90 tablet 1 01/03/2024 04/02/2024 Active Problems Active Problems Problem Classification Problem Date Documented Date Episodic/Chronic Asthma (4 sources) Unspecified asthma, uncomplicated; Translations: [Acute severe exacerbation of mild persistent asthma] Onset: 06-01-2022 12-28-2023 Chronic Esophageal disorders (3 sources) Gastroesophageal reflux disease without esophagitis; Translations: [Gastro-esophageal reflux disease without esophagitis] Onset: 12-28-2023 12-28-2023 Chronic Headache; including migraine (3 sources) Headache; including migraine; Translations: [HEADACHE UNSPECIFIED] Onset: 09-30-2021 Immunizations and screening for infectious disease (3 sources) Raised antibody titer; Translations: [Other and unspecified nonspecific immunological findings] Onset: 12-28-2023 12-28-2023 Episodic Malaise and fatigue (4 sources) Other fatigue; Translations: [OTHER FATIGUE] Onset: 06-16-2022 Episodic Nonspecific chest pain (5 sources) Chest pain, unspecified; Translations: [CHEST PAIN UNSPECIFIED] Onset: 11-19-2021 Episodic Other aftercare (1 source) Other automation architect (current) drug therapy; Translations: [OTH RANCH SUPERVISOR CURRENT DRUG THERAPY] Onset: 06-01-2022 Episodic Other connective tissue disease (4 sources) Foot pain; Translations: [Pain in left foot] Onset: 02-22-2024 02-22-2024 Episodic Other hematologic conditions (4 sources) Elevated erythrocyte sedimentation rate; Translations: [ELEVATED ERYTHROCYTE SED RATE] Onset: 06-29-2022 Episodic Other hematologic conditions (3 sources) ESR raised; Translations: [Elevated erythrocyte sedimentation rate] Onset: 12-28-2023 12-28-2023 Episodic Other liver diseases (3 sources) Alkaline phosphatase raised; Translations: [Abnormal levels of other serum enzymes] Onset: 12-28-2023 12-28-2023 Episodic Other nutritional; endocrine; and metabolic disorders (5 sources) Obesity caused by energy imbalance; Translations: [Class 1 obesity due to excess calories without serious comorbidity with body mass index (BMI) of 34.0 to 34.9 in adult] Onset: 01-03-2024 01-03-2024 Chronic Other upper respiratory infections (4 sources) Acute pharyngitis, unspecified; Translations: [Acute upper respiratory infection, unspecified] Onset: 05-31-2022 Episodic Unclassified (3 sources) LOW BACK PAIN, UNSPECIFIED; Translations: [LOW BACK PAIN, UNSPECIFIED] Onset: 07-22-2022 Unclassified (1 source) CONTACT W/AND (SUSP) EXPOS COVID-19; Translations: [CONTACT W/AND (SUSP) EXPOS COVID-19] Onset: 06-01-2022 Unclassified (1 source) UNVACCINATED FOR COVID-19; Translations: [UNVACCINATED FOR COVID-19] Onset: 06-01-2022 Viral infection (4 sources) Viral infection, unspecified; Translations: [Disease caused by 2019-nCoV] Onset: 10-02-2021 02-07-2024 Episodic Past or Other Problems Problem Classification Problem Date Documented Da te Episodic/Chronic Residual codes; unclassified (3 sources) Tobacco user; Translations: [Tobacco use] Onset: 12-28-2023 Resolved: 02-07-2024 02-07-2024 Episodic Screening and history of mental health and substance abuse codes (1 source) Personal history of nicotine dependence; Translations: [PERSONAL HISTORY OF NICOTINE DEPEND] Onset: 10-02-2021 Episodic Unclassified (1 source) LOW BACK PAIN, UNSPECIFIED; Translations: [LOW BACK PAIN, UNSPECIFIED] Onset: 07-17-2022 Results Test Name Value Interpretation Reference Range Facility Registrationon 04-26-2023 Registration [id number]# 1.00TIFF [facility] Consent for Treatmenton Consent for Treatment [id number]# 1.00TIFF [facility] XR LSPINE 2_3 VIEWSon 2022 XR LSPINE [...] HEBER BANUELOS Date: 2022-07-17 12:44 Normal [facility] BARTOLOME by IFAon 07-02-2022 Antinuclear Antibodies, IFA Negative Normal [facility] Comment on above: Result Comment: Nega tive <1:80 Borderline 1:80 Positive >1:80 ICAP nomenclature: AC-0 For more information about Hep-2 cell patterns use ANApatterns.org, the official website for the International Consensus on Antinuclear Antibody (BARTOLOME) Patterns (ICAP). Performed By: #### S EDR #### [facility] [address] [place] [address] Dr. Raman Xie ANTISTREPTOLYSIN O AB (ASO)o n 06-30-2022 Antistreptolysin O Ab 797.3 IU/mL Critically high 0.0-200. 0 [facility] Comment on above: Result Comment: Resu lts confirmed on dilution. Performed By: #### E RUR #### [facility] [address] [place] [address] Dr. Raman Xie RHEUMATOID FACTORon 06-30-19 23 RA Latex Turbid. <10.0 Normal <14.0 [facility] Comment on above: Performed By: #### R F #### [facility] [address] [place] [address] Dr. Raman Xie SED RATE WESTERGRENon 2022 SED RATE 18 mm/hr Critically high <=15 [facility] Comment on above: Performed By: #### S EDR #### [facility] [address] [place] [address] Dr. Raman Xie URIC ACID SERUMon 06-29-2022 Urate [Mass/Vol] 6.2 mg/dL Normal 3.5-7.2 [facility] Comment on above: Performed By: #### E RUR #### [facility] [address] [place] [address] Dr. Raman Xie CBC AUTO DIFFon 06-16-2022 BASO # 0.1 103/ul Normal 0.0-0.1 [facility] Comment on above: Performed By: #### C BC #### [facility] [address] [address] [address] Raman Xie Basophils/100 WBC (Bld) 0.8 % Normal 0.2-2.0 [facility] Comment on above: Performed By: #### C BC #### [facility] [address] [address] [address] Raman Xie EO # 0.1 103/ul Normal 0.0-0.7 [facility] Comment on above: Performed By: #### C BC #### [facility] [address] [address] [address] Raman Xie Eosinophils/100 WBC (Bld) 1.3 % Normal 0.9-7.0 [facility] Comment on above: Performed By: #### C BC #### [facility] [address] [address] [address] Raman Xie Erythrocyte distribution width (RBC) [Ratio] 13.1 % Normal 11.0-15.0 [facility] Comment on above: Performed By: #### C BC #### [facility] [address] [address] [address] Raman Xie Hematocrit (Bld) [Volume fraction] 44.3 % Normal 42.0-54.0 [facility] Comment on above: Performed By: #### C BC #### [facility] [address] [address] [address] Raman Xie Hemoglobin (Bld) [Mass/Vol] 14.9 g/dL Normal 14.0-18.0 [facility] Comment on above: Performed By: #### C BC #### [facility] [address] [address] [address] Raman Xie IG # 0.03 10e3/ul Normal 0.00-0.03 [facility] Comment on above: Performed By: #### C BC #### [facility] [address] [place] [address] Dr. Raman Xie IG % 0.3 % Normal 0.0-0.5 [facility] Comment on above: Performed By: #### C BC #### [facility] [address] [place] [address] Dr. Raman Xie LYMPH # 2.4 103/ul Normal 1.2-3.8 [facility] Comment on above: Performed By: #### C BC #### [facility] [address] [place] [address] Dr. Raman Xie Lymphocytes/100 WBC (Bld) 23.3 % Normal 20.5-60.0 [facility] Comment on above: Performed By: #### C BC #### [facility] [address] [place] [address] Dr. Raman Xie MANUAL DIFF REQ NO Normal [facility] Comment on above: Performed By: #### C BC #### [facility] [address] [place] [address] Dr. Raman Xie MCH (RBC) [Entitic mass] 30.4 pg Normal 25.9-34.0 [facility] Comment on above: Performed By: #### C BC #### [facility] [address] [place] [address] Dr. Raman Xie MCHC (RBC) [Mass/Vol] 33.6 g/dL Normal 29.9-35.2 [facility] Comment on above: Performed By: #### C BC #### [facility] [address] [place] [address] Dr. Raman Xie MCV (RBC) [Entitic vol] 90.4 fL Normal 80.0-94.0 [facility] Comment on above: Performed By: #### C BC #### [facility] [address] [place] [address] Dr. Raman Xie MONO # 0.7 103/ul Normal 0.3-0.8 [facility] Comment on above: Performed By: #### C BC #### [facility] [address] [place] [address] Dr. Raman Xie Monocytes/100 WBC (Bld) 6.9 % Normal 1.7-12.0 [facility] Comment on above: Performed By: #### C BC #### [facility] [address] [place] [address] Dr. Raman Xie NEUT # 7.0 103/ul Critically high 1.4-6.5 [facility] Comment on above: Performed By: #### C BC #### [facility] [address] [place] [address] Dr. Raman Xie Neutrophils/100 WBC (Bld) 67.4 % Normal 43.0-75.0 [facility] Comment on above: Performed By: #### C BC #### [facility] [address] [place] [address] Dr. Raman Xie Platelet mean volume (Bld) [Entitic vol] 10.7 fL Normal 9.5-13.5 [facility] Comment on above: Performed By: #### C BC #### [facility] [address] [place] [address] Dr. Raman Xie PLT 350 103/ul Normal 150-450 [facility] Comment on above: Performed By: #### C BC #### [facility] [address] [place] [address] Dr. Raman Xie RBC 4.90 106/ul Normal 4.70-6.10 [facility] Comment on above: Performed By: #### C BC #### [facility] [address] [place] [address] Dr. Raman Xie WBC 10.4 103/ul Normal 4.0-11.0 [facility] Comment on above: Performed By: #### C BC #### [facility] [address] [place] [address] Dr. Raman Xie CRPon 06-16-2022 CRP 0.5 mg/dL Normal <=1.0 [facility] Comment on above: Performed By: #### E RUR #### [facility] [address] [place] [address] Dr. Raman Xie FREE T4on 06-16-2022 Free T4 [Mass/Vol] 0.95 ng/dL Normal 0.76-1.46 [facility] Comment on above: Performed By: #### F T4, IRON, VITB12 #### [facility] [address] [place] [address] Dr. Raman Xie IRONon 06-16-2022 Iron [Mass/Vol] 81.0 ug/dL Normal 65.0-175.0 [facility] Comment on above: Performed By: #### F T4, IRON, VITB12 #### [facility] [address] [place] [address] Dr. Raman Xie PROF 14(COMP METB)on 023 Albumin [Mass/Vol] 3.7 g/dL Normal 3.4-5.0 [facility] Comment on above: Performed By: #### E RUR #### [facility] [address] [place] [address] Dr. Raman Xie Albumin/Globulin [Mass ratio] 0.8 {ratio} Normal [facility] Comment on above: Performed By: #### E RUR #### [facility] [address] [place] [address] Dr. Raman Xie ALP [Catalytic activity/Vol] 153 U/L Critically high 46-116 [facility] Comment on above: Performed By: #### E RUR #### [facility] [address] [place] [address] Dr. Raman Xie ALT [Catalytic activity/Vol] 31 U/L Normal 16-63 [facility] Comment on above: Performed By: #### E RUR #### [facility] [address] [place] [address] Dr. Raman Xie Anion gap [Moles/Vol] 11.1 mmol/L Normal [facility] Comment on above: Performed By: #### E RUR #### [facility] [address] [place] [address] Dr. Raman Xie AST [Catalytic activity/Vol] 18 U/L Normal 15-37 [facility] Comment on above: Performed By: #### E RUR #### [facility] [address] [address] [address] Raman Xie Bilirubin [Mass/Vol] 0.2 mg/dL Normal 0.2-1.0 [facility] Comment on above: Performed By: #### E RUR #### [facility] [address] [address] [address] Raman Xie Calcium [Mass/Vol] 9.0 mg/dL Normal 8.5-10.1 [facility] Comment on above: Performed By: #### E RUR #### [facility] [address] [address] [address] Raman Xie Chloride [Moles/Vol] 101 mmol/L Normal 98-107 [facility] Comment on above: Performed By: #### E RUR #### [facility] [address] [place] [address] Dr. Raman Xie CO2 [Moles/Vol] 30.7 mmol/L Normal 21.0-32.0 [facility] Comment on above: Performed By: #### E RUR #### [facility] [address] [place] [address] Dr. Raman Xie Creatinine [Mass/Vol] 0.84 mg/dL Normal 0.70-1.30 [facility] Comment on above: Performed By: #### E RUR #### [facility] [address] [place] [address] Dr. Raman Xie EGFR-AF BELIZEAN >60 Normal >=60 [facility] Comment on above: Performed By: #### E RUR #### [facility] [address] [place] [address] Dr. Raman Xie EGFR-NON AF BELIZEAN >60 Normal >=60 [facility] Comment on above: Performed By: #### E RUR #### [facility] [address] [place] [address] Dr. Raman Xie Globulin (S) [Mass/Vol] 4.6 g/dL Normal [facility] Comment on above: Performed By: #### E RUR #### [facility] [address] [place] [address] Dr. Raman Xie Glucose [Mass/Vol] 102 mg/dL Normal 74-106 [facility] Comment on above: Performed By: #### E RUR #### [facility] [address] [address] [address] Raman Xie Potassium [Moles/Vol] 3.8 mmol/L Normal 3.5-5.1 [facility] Comment on above: Performed By: #### E RUR #### [facility] [address] [address] [address] Raman Xie Protein [Mass/Vol] 8.3 g/dL Critically high 6.4-8.2 [facility] Comment on above: Performed By: #### E RUR #### [facility] [address] [place] [address] Dr. Raman Xie Sodium [Moles/Vol] 139 mmol/L Normal 136-145 [facility] Comment on above: Performed By: #### E RUR #### [facility] [address] [place] [address] Dr. Raman Xie Urea nitrogen [Mass/Vol] 18.0 mg/dL Normal 7.0-18.0 [facility] Comment on above: Performed By: #### E RUR #### [facility] [address] [place] [address] Dr. Raman Xie Urea nitrogen/Creatinine [Mass ratio] 21.4 mg/mg Normal [facility] Comment on above: Performed By: #### E RUR #### [facility] [address] [place] [address] Dr. Raman Xie SED RATE WESTERGRENon 2022 SED RATE 31 mm/hr Critically high <=15 [facility] Comment on above: Performed By: #### S EDR #### [facility] [address] [place] [address] Dr. Raman Xie TSHon 06-16-2022 TSH 2.022 uIU/mL Normal 0.358-3.740 [facility] Comment on above: Performed By: #### E RUR #### [facility] [address] [address] [address] Raman Xie VITAMIN B12on 06-16-2022 Cobalamin (Vitamin B12) [Mass/Vol] 1263.0 pg/mL Critically high 193.0-986.0 [facility] Comment on above: Performed By: #### F T4, IRON, VITB12 #### [facility] [address] [address] [address] Raman Xie XR CHEST 2 Von [...] the chest is unchanged. Electronically authenticated by: JAVIER COTTON Date: 2022-06-16 17:09 Normal [facility] Covid-19 PCR (CVDTB)on SARS-CoV-2 (COVID-19) RNA ANKIT+probe Ql (Unsp spec) Not detected Normal NOT DETECTED [facility] Comment on above: Result Comment: When [...] for this test is supported by the Sales Administration Specialist of Health and Human Service's declaration that [...] used). Performed By: #### S EDR #### [facility] [address] [address] [address] Raman Xie GROUP A STREP CULTUREon S. pyogenes Ag Ql (Unsp spec) Culture Observations: NEGATIVE FOR GROUP A STREPTOCOCCUS. Normal [facility] Comment on above: Performed By: #### S EDR #### [facility] [address] [place] [address] Dr. Raman Xie INFLUENZA A AND B AGon 05-31 INFLUANEGH SEE BELOW Normal [facility] Comment on above: Result Comment: Nega tive for Flu A protein angiten. Infection due to Flu A cannot be ruled out. Flu A angiten in the sample may be below the detection limit of the test. Performed By: #### S EDR #### [facility] [address] [place] [address] Dr. Raman Xie INFLUBNEGH SEE BELOW Normal [facility] Comment on above: Result Comment: Nega tive for Flu B protein antigen. Infection due to Flu B cannot be ruled out. Flu B antigen in the sample may be below the detection limit of the test. Performed By: #### S EDR #### [facility] [address] [place] [address] Dr. Raman Xie INFLUENZA A AG Negative Normal NEGATIVE SEE COMMENT [facility] Comment on above: Performed By: #### S EDR #### [facility] [address] [place] [address] Dr. Raman Xie INFLUENZA B AG Negative Normal NEGATIVE SEE COMMENT [facility] Comment on above: Performed By: #### S EDR #### [facility] [address] [place] [address] Dr. Ramna Xie STREPT SCREENon 05-31-2022 STREP SCREEN A Negative Normal NEGATIVE [facility] Comment on above: Performed By: #### S EDR #### [facility] [address] [place] [address] Dr. Raman Xie ECHOCARDIO M/2D COMPLETEon 0 11-19-2021 ECHOCARDIO M/2D COMPLETE Patient: LEXI WESTBROOK Exam Date: 11/19/2021 : 1985 Gender:M Ordering : ADIN BERGMAN CNP Admission #: [id number] Family : Order #: [id number] CLICK HERE TO VIEW EXAM ECHOCARDIOGRAM REPORT [...] Area(A4C): 12.60 cm2 Left Atrium Systolic Volume(A2C): 80973 mm3 Left Atrium Systolic Volume(A4C): 08339 mm3 Mitral Valve MV E to A Ratio: 1.30 Deceleration Isabella: 4740 mm/s2 Mitral Valve A-Wave Peak Velocity: [...] M.D. on 11/19/2021 at 13:31 Normal The [facility] Covid-19 PCR (CVDTBH)on 09-21 SARS-CoV-2 (COVID-19) RNA ANKIT+probe Ql (Unsp spec) Not detected Normal NOT DETECTED [facility] Comment on above: Result Comment: When diagnostic testing is negative, the possibility of a false negative should be considered in the context of a patient's recent exposures and the presence of clinical signs and symptoms consistent with SARS-CoV-2. This test is not yet approved or cleared by the [place] Food and Drug Administration (FDA). This test was developed by [employer], [place], [place]. The performance characteristics of this test were validated by [facility]. The results are not intended to be used as the sole means for clinical diagnosis or patient management decisions. The [facility] is authorized under Clinical Laboratory Improvement [...] for this test is supported by the [place] of Health and Human Service's declaration that [...] used). Performed By: #### E RUR #### [facility] [address] [place] [address] Dr. Raman Xie ER URINE PROFILEon 2 Bilirubin Ql (U) Negative Normal NEGATIVE [facility] Comment on above: Performed By: #### E RUR #### [facility] [address] [place] [address] Dr. Raman Xie Clarity (U) CLEAR Normal CLEAR [facility] Comment on above: Performed By: #### E RUR #### [facility] [address] [place] [address] Dr. Raman Xie Color (U) LT. YELLOW Normal YELLOW [facility] Comment on above: Performed By: #### E RUR #### [facility] [address] [place] [address] Dr. Raman HAMILTONMari A micrscopic examination will be performed if indicated. Normal [facility] Comment on above: Performed By: #### E RUR #### [facility] [address] [place] [address] Dr. Raman Xie Glucose Ql (U) Negative Normal NEGATIVE [facility] Comment on above: Performed By: #### E RUR #### [facility] [address] [place] [address] Dr. Raman Xie Hemoglobin Ql (U) Negative Normal NEGATIVE [facility] Comment on above: Performed By: #### E RUR #### [facility] [address] [place] [address] Dr. Raman Xie Ketones Ql (U) Negative Normal NEGATIVE [facility] Comment on above: Performed By: #### E RUR #### [facility] [address] [place] [address] Dr. Raman Xie LEUKOCYTES Negative Normal NEGATIVE [facility] Comment on above: Performed By: #### E RUR #### [facility] [address] [place] [address] Dr. Raman Xie Nitrite Ql (U) Negative Normal NEGATIVE [facility] Comment on above: Performed By: #### E RUR #### [facility] [address] [place] [address] Dr. Raman Xie pH (U) 6.0 [pH] Normal 5-9 [facility] Comment on above: Performed By: #### E RUR #### [facility] [address] [place] [address] Dr. Raman Xie SPEC GRAVITY 1.015 Normal 1.005-<=1.025 [facility] Comment on above: Performed By: #### E RUR #### [facility] [address] [place] [address] Dr. Raman Xie UA PROTEIN Negative Normal NEGATIVE/ TRACE [facility] Comment on above: Performed By: #### E RUR #### [facility] [address] [place] [address] Dr. Raman Xie UR MICRO IND NOT INDICATED Normal [facility] Comment on above: Performed By: #### E RUR #### [facility] [address] [place] [address] Dr. Raman Xie Urobilinogen Qn (U) 0.2 {Ki'U}/dL Normal 0.2 - 1. 0 [facility] Comment on above: Performed By: #### E RUR #### [facility] [address] [place] [address] Dr. Raman Xie INFLUENZA A AND B AGon 10-01 INFLUANEGH SEE BELOW Normal [facility] Comment on above: Result Comment: Nega tive for Flu A protein angiten. Infection due to Flu A cannot be ruled out. Flu A angiten in the sample may be below the detection limit of the test. Performed By: #### E RUR #### [facility] [address] [place] [address] Dr. Raman Xie INFLUBNEGH SEE BELOW Normal [facility] Comment on above: Result Comment: Nega tive for Flu B protein antigen. Infection due to Flu B cannot be ruled out. Flu B antigen in the sample may be below the detection limit of the test. Performed By: #### E RUR #### [facility] [address] [place] [address] Dr. Raman Xie INFLUENZA A AG Negative Normal NEGATIVE SEE COMMENT [facility] Comment on above: Performed By: #### E RUR #### [facility] [address] [place] [address] Dr. Raman Xie INFLUENZA B AG Negative Normal NEGATIVE SEE COMMENT [facility] Comment on above: Performed By: #### E RUR #### [facility] [address] [place] [address] Dr. Raman Xie INTERNAL CONTROLS Within Normal Limits Normal Wi thin Normal Limits [facility] Comment on above: Performed By: #### E RUR #### [facility] [address] [place] [address] Dr. Raman Xie CBC AUTO DIFFon 09-30-2021 BASO # 0.0 103/ul Normal 0.0-0.1 [facility] Comment on above: Performed By: #### C BC #### [facility] [address] [place] [address] Dr. Raman Xie Basophils/100 WBC (Bld) 0.3 % Normal 0.2-2.0 [facility] Comment on above: Performed By: #### C BC #### [facility] [address] [place] [address] Dr. Raman Xie EO # 0.1 103/ul Normal 0.0-0.7 [facility] Comment on above: Performed By: #### C BC #### [facility] [address] [place] [address] Dr. Raman Xie Eosinophils/100 WBC (Bld) 0.4 % Critically low 0.9-7.0 [facility] Comment on above: Performed By: #### C BC #### [facility] [address] [place] [address] Dr. Raman Xie Erythrocyte distribution width (RBC) [Ratio] 13.0 % Normal 11.0-15.0 [facility] Comment on above: Performed By: #### C BC #### [facility] [address] [place] [address] Dr. Raman Xie Hematocrit (Bld) [Volume fraction] 45.2 % Normal 42.0-54.0 [facility] Comment on above: Performed By: #### C BC #### [facility] [address] [place] [address] Dr. Raman Xie Hemoglobin (Bld) [Mass/Vol] 15.1 g/dL Normal 14.0-18.0 [facility] Comment on above: Performed By: #### C BC #### [facility] [address] [place] [address] Dr. Raman Xie IG # 0.06 10e3/ul Critically high 0.00-0.03 [facility] Comment on above: Performed By: #### C BC #### [facility] [address] [place] [address] Dr. Raman Xie IG % 0.5 % Normal 0.0-0.5 [facility] Comment on above: Performed By: #### C BC #### [facility] [address] [place] [address] Dr. Raman Xie LYMPH # 1.0 103/ul Critically low 1.2-3.8 [facility] Comment on above: Performed By: #### C BC #### [facility] [address] [place] [address] Dr. Raman Xie Lymphocytes/100 WBC (Bld) 7.5 % Critically low 20.5-60.0 [facility] Comment on above: Performed By: #### C BC #### [facility] [address] [place] [address] Dr. Raman Xie MANUAL DIFF REQ NO Normal [facility] Comment on above: Performed By: #### C BC #### [facility] [address] [place] [address] Dr. Raman Xie MCH (RBC) [Entitic mass] 30.4 pg Normal 25.9-34.0 [facility] Comment on above: Performed By: #### C BC #### [facility] [address] [address] [address] Raman Xie MCHC (RBC) [Mass/Vol] 33.4 g/dL Normal 29.9-35.2 [facility] Comment on above: Performed By: #### C BC #### [facility] [address] [address] [address] Raman Xie MCV (RBC) [Entitic vol] 91.1 fL Normal 80.0-94.0 [facility] Comment on above: Performed By: #### C BC #### [facility] [address] [address] [address] Raman Xie MONO # 0.8 103/ul Normal 0.3-0.8 [facility] Comment on above: Performed By: #### C BC #### [facility] [address] [place] [address] Dr. Raman Xie Monocytes/100 WBC (Bld) 6.3 % Normal 1.7-12.0 [facility] Comment on above: Performed By: #### C BC #### [facility] [address] [place] [address] Dr. Raman Xie NEUT # 10.8 103/ul Critically high 1.4-6.5 [facility] Comment on above: Performed By: #### C BC #### [facility] [address] [place] [address] Dr. Raman Xie Neutrophils/100 WBC (Bld) 85.0 % Critically high 43.0-75.0 [facility] Comment on above: Performed By: #### C BC #### [facility] [address] [place] [address] Dr. Raman Xie Platelet mean volume (Bld) [Entitic vol] 10.3 fL Normal 9.5-13.5 [facility] Comment on above: Performed By: #### C BC #### [facility] [address] [place] [address] Dr. Raman Xie PLT 331 103/ul Normal 150-450 [facility] Comment on above: Performed By: #### C BC #### [facility] [address] [place] [address] Dr. Raman Xie RBC 4.96 106/ul Normal 4.70-6.10 [facility] Comment on above: Performed By: #### C BC #### [facility] [address] [place] [address] Dr. Raman Xie WBC 12.7 103/ul Critically high 4.0-11.0 [facility] Comment on above: Performed By: #### C BC #### [facility] [address] [place] [address] Dr. Raman Xie LACTATE/LACTIC ACIDon 2021 Lactate [Moles/Vol] 0.9 mmol/L Normal 0.4-1.9 [facility] Comment on above: Performed By: #### S EDR #### [facility] [address] [place] [address] Dr. Raman Xie PROF 14(COMP METB)on 022 Albumin [Mass/Vol] 3.8 g/dL Normal 3.4-5.0 [facility] Comment on above: Performed By: #### C MP #### [facility] [address] [place] [address] Dr. Raman Xie Albumin/Globulin [Mass ratio] 0.9 {ratio} Normal [facility] Comment on above: Performed By: #### C MP #### [facility] [address] [place] [address] Dr. Raman Xie ALP [Catalytic activity/Vol] 127 U/L Critically high 46-116 [facility] Comment on above: Performed By: #### C MP #### [facility] [address] [place] [address] Dr. Raman Xie ALT [Catalytic activity/Vol] 24 U/L Normal 16-63 [facility] Comment on above: Performed By: #### C MP #### [facility] [address] [place] [address] Dr. Raman Xie Anion gap [Moles/Vol] 13.2 mmol/L Normal [facility] Comment on above: Performed By: #### C MP #### [facility] [address] [address] [address] Raman Xie AST [Catalytic activity/Vol] 15 U/L Normal 15-37 [facility] Comment on above: Performed By: #### C MP #### [facility] [address] [address] [address] Raman Xie Bilirubin [Mass/Vol] 0.4 mg/dL Normal 0.2-1.0 [facility] Comment on above: Performed By: #### C MP #### [facility] [address] [address] [address] Raman Xie Calcium [Mass/Vol] 8.4 mg/dL Critically low 8.5-10.1 [facility] Comment on above: Performed By: #### C MP #### [facility] [address] [place] [address] Dr. Raman Xie Chloride [Moles/Vol] 100 mmol/L Normal 98-107 [facility] Comment on above: Performed By: #### C MP #### [facility] [address] [address] [address] Raman Xie CO2 [Moles/Vol] 26.4 mmol/L Normal 21.0-32.0 [facility] Comment on above: Performed By: #### C MP #### [facility] [address] [place] [address] Dr. Raman Xie Creatinine [Mass/Vol] 1.09 mg/dL Normal 0.70-1.30 [facility] Comment on above: Performed By: #### C MP #### [facility] [address] [address] [address] Raman Xie EGFR-AF BELIZEAN >60 Normal >=60 [facility] Comment on above: Performed By: #### C MP #### [facility] [address] [place] [address] Dr. Raman Xie EGFR-NON AF BELIZEAN >60 Normal >=60 [facility] Comment on above: Performed By: #### C MP #### [facility] [address] [address] [address] Raman Xie Globulin (S) [Mass/Vol] 4.1 g/dL Normal [facility] Comment on above: Performed By: #### C MP #### [facility] [address] [address] [address] Raman Xie Glucose [Mass/Vol] 125 mg/dL Critically high 74-106 [facility] Comment on above: Performed By: #### C MP #### [facility] [address] [address] [address] Raman Xie Potassium [Moles/Vol] 3.6 mmol/L Normal 3.5-5.1 [facility] Comment on above: Performed By: #### C MP #### [facility] [address] [address] [address] Raman Xie Protein [Mass/Vol] 7.9 g/dL Normal 6.4-8.2 [facility] Comment on above: Performed By: #### C MP #### [facility] [address] [place] [address] Dr. Raman Xie Sodium [Moles/Vol] 136 mmol/L Normal 136-145 [facility] Comment on above: Performed By: #### C MP #### [facility] [address] [address] [address] Raman Xie Urea nitrogen [Mass/Vol] 15.0 mg/dL Normal 7.0-18.0 [facility] Comment on above: Performed By: #### C MP #### [facility] [address] [address] [address] Raman Xie Urea nitrogen/Creatinine [Mass ratio] 13.8 mg/mg Normal [facility] Comment on above: Performed By: #### C MP #### [facility] [address] [place] [address] Dr. Raman Xie Complete Blood Count Auto Di ffon 08-23-2018 Basophils #/vol (Bld) 0.1 10*3/uL Normal 0.0-0.2 [facility] Comment on above: Result Comment: PERF ORMED BY: [place] [address] PATHOLOGIST [employer]EDIAL TE[employer]ER MINH DOMINGO M.D. Performed By: #### C BC, CMP #### [address] Basophils/100 WBC (Bld) 1.2 % Normal . [facility] Comment on above: Performed By: #### C BC, CMP #### [address] Eosinophils #/vol (Bld) 0.1 10*3/uL Normal 0.0-0.45 [facility] Comment on above: Performed By: #### C BC, CMP #### [address] Eosinophils/100 WBC (Bld) 1.0 % Normal . [facility] Comment on above: Performed By: #### C BC, CMP #### [address] Erythrocyte distribution width Ratio (RBC) 13.2 % Normal 12.0-14.8 [facility] Comment on above: Performed By: #### C BC, CMP #### [address] Hematocrit Volume Fraction (Bld) 45.6 % Normal 38.8-50.0 [facility] Comment on above: Performed By: #### C BC, CMP #### [address] Hemoglobin mass conc (Bld) 15.2 g/dL Normal 13.0-17.0 [facility] Comment on above: Performed By: #### C BC, CMP #### [place] [address] [place] Lymphocytes #/vol (Bld) 1.7 10*3/uL Normal 1.00-4.8 [facility] Comment on above: Performed By: #### C BC, CMP #### [place] [address] [place] Lymphocytes/100 WBC (Bld) 14.2 % Normal . [facility] Comment on above: Performed By: #### C BC, CMP #### [facility] [address] MCH Entitic mass (RBC) 33.4 g/dL Normal 32.5-35.6 [facility] Comment on above: Performed By: #### C BC, CMP #### [facility] [address] MCH Entitic mass (RBC) 30.5 pg Normal 27.5-35.2 [facility] Comment on above: Performed By: #### C BC, CMP #### [facility] [address] MCV Entitic volume (RBC) 91.5 fL Normal 83.5-101 [facility] Comment on above: Performed By: #### C BC, CMP #### [facility] [address] Monocytes #/vol (Bld) 0.7 10*3/uL Normal 0.0-0.8 [facility] Comment on above: Performed By: #### C BC, CMP #### [facility] [address] [place] [address] [place] Monocytes/100 WBC (Bld) 6.0 % Normal . [facility] Comment on above: Performed By: #### C BC, CMP #### [facility] [address] Neutrophils #/vol (Bld) 9.2 10*3/uL High 1.8-7.7 [facility] Comment on above: Performed By: #### C BC, CMP #### [facility] [address] [place] [address] [place] Neutrophils/100 WBC (Bld) 77.6 % Normal . [facility] Comment on above: Performed By: #### C BC, CMP #### [facility] [address] Nucleated RBC/100 WBC Ratio (Bld) 0.0 % Normal 0-0.5 [facility] Comment on above: Performed By: #### C BC, CMP #### [facility] [address] Platelet mean volume Entitic volume (Bld) 8.9 fL Normal 6.6-10.1 [facility] Comment on above: Performed By: #### C BC, CMP #### [facility] [address] Platelets #/vol (Bld) 315 10*3/uL Normal 150-450 [facility] Comment on above: Performed By: #### C BC, CMP #### [facility] [address] RBC #/vol (Bld) 4.99 10*6/uL Normal 3.90-5.60 [facility] Comment on above: Performed By: #### C BC, CMP #### [address] WBC #/vol (Bld) 11.9 10*3/uL High 4.5-11.0 [facility] Comment on above: Performed By: #### C BC, CMP #### [address] Comprehensive Metabolic Pane shahida 08-23-2018 Albumin mass conc 4.2 g/dL Normal 3.2-5.5 [facility] Comment on above: Performed By: #### C BC, CMP #### [address] Albumin/Globulin mass ratio 1.2 {ratio} Normal [facility] Comment on above: Performed By: #### C BC, CMP #### [facility] [address] [place] [address] ALP enzyme act/vol 133 U/L High 32-92 [facility] Comment on above: Performed By: #### C BC, CMP #### [address] ALT enzyme act/vol 22 U/L Normal 10-60 [facility] Comment on above: Performed By: #### C BC, CMP #### [address] AST enzyme act/vol 23 U/L Normal 10-42 [facility] Comment on above: Performed By: #### C BC, CMP #### [address] Bilirubin mass conc 0.4 mg/dL Normal 0.3-1.2 [facility] Comment on above: Performed By: #### C BC, CMP #### [address] Calcium mass conc 9.0 mg/dL Normal 8.2-10.2 [facility] Comment on above: Performed By: #### C BC, CMP #### [address] Chloride molar conc 102 mmol/L Normal 95-114 [facility] Comment on above: Performed By: #### C BC, CMP #### [address] CO2 molar conc 26.4 mmol/L Normal 22.0-30.0 [facility] Comment on above: Performed By: #### C BC, CMP #### [address] Creatinine mass conc 140.5399724945 mg/dL Normal [facility] Comment on above: Result Comment: PERF ORMED BY: [place] [address] PATHOLOGIST REMEDIAL TEACHER MINH DOMINGO M.D. Performed By: #### C BC, CMP #### [address] Creatinine mass conc 0.93 mg/dL Normal 0.64-1.27 [facility] Comment on above: Performed By: #### C BC, CMP #### [place] [address] [place] Estimated GFR ( Bless[place] > 60 Normal [facility] Comment on above: Result Comment: GFR estimated reference range: According to KDOQI guidelines, <60 ml/min/1.73m2 is sufficient to diagnose a patient with chronic kidney disease. Performed By: #### C BC, CMP #### [facility] [address] Estimated GFR (Non- Am > 60 Normal [facility] Comment on above: Performed By: #### C BC, CMP #### [facility] [address] [id number] [facility] Globulin mass conc (S) 3.5 g/dL Normal [facility] Comment on above: Performed By: #### C BC, CMP #### [facility] [address] Glucose mass conc 100 mg/dL Normal 70-100 [facility] Comment on above: Result Comment: [facility] Glucose Reference Range is dependent on time and content of last meal. Glucose of more than 200 mg/dL in a nonstressed, ambulatory subject supports the diagnosis of Diabetes Mellitus. ADA recommended reference range Performed By: #### C BC, CMP #### [address] Potassium molar conc 4.2 mmol/L Normal 3.5-5.1 [facility] Comment on above: Performed By: #### C BC, CMP #### [place] [address] [place] Protein mass conc 7.7 g/dL Normal 6.1-7.9 [facility] Comment on above: Performed By: #### C BC, CMP #### [place] [address] [place] Sodium molar conc 139 mmol/L Normal 136-146 [facility] Comment on above: Performed By: #### C BC, CMP #### [address] [id number] [place] Urea nitrogen mass conc 10 mg/dL Normal 9-23 [facility] Comment on above: Performed By: #### C BC, CMP #### [address] [id number] [place] ECG 12 lead ECGon 08-22-2018 ECG 12 lead ECG [facility] [address] [place] [address] [place] [address] Electrocardiograph Report Signed Patient: Lexi Westbrook MR#: [id number] : 1985 Acct:[id number] Age/Sex: 32 / M ADM Date: 08/22/18 Loc: ER Room: Type: [place] [facility] Attending Dr: Ordering Provider: Nubia Jefferson MD Date of Service: 08/22/18 ECG/ECG 12 [...] No previous ECGs available Confirmed by NUBIA JEFFERSON MD ([id number]) on 08/22/2018 11:09:50 PM Referred By: Electronically Signed By:NUBIA JEFFERSON MD Transcribed By: MUS Dictated By: Nubia Jefferson MD 08/22/18 3813 Signed By: 08/22/18 2305 [facility] Vital Signs Date Time Vital Sign Value Performing Clinician Faci lity 02-22-2024 08:54-0400 Body height 172.7 cm Fany Pacheco STORY EDITOR Work Phone: [facility] 02-22-2024 08:54-0400 Body mass index (BMI) [Ratio] 34.15 kg/m2 Fany Pacheco STORY EDITOR Work Phone: [facility] 02-22-2024 08:54-0400 Body temperature 98.49 [degF] Fany Pacheco STORY EDITOR Work Phone: [facility] 02-22-2024 08:54-0400 Body weight 101.88 kg Fany Nedahnaima STORY EDITOR Work Phone: [facility] 02-22-2024 08:54-0400 Diastolic blood pressure 80 mm[Hg] Fany Pacheco STORY EDITOR Work Phone: [facility] 02-22-2024 08:54-0400 Heart rate 108 /min Fany Pacheco STORY EDITOR Work Phone: [facility] 02-22-2024 08:54-0400 Respiratory rate 18 /min Fany Pacheco STORY EDITOR Work Phone: [facility] 02-22-2024 08:54-0400 SaO2% (BldA) [Mass fraction] 98 % Fany Pacheco STORY EDITOR Work Phone: [facility] 02-22-2024 08:54-0400 Systolic blood pressure 122 mm[Hg] Fany Pacheco STORY EDITOR Work Phone: [facility] Healthcare Encounters Encounter Date Encounter Type Care Provider Facility Start: 02-22-2024 End: 02-22-2024 Bamboo flowsheet Fany Bergman STORY EDITOR Work Phone: [facility] Start: 02-22-2024 End: 02-22-2024 Bamboo flowsheet Fany Bergman STORY EDITOR Work Phone: [facility] Start: 02-22-2024 End: 02-22-2024 ambulatory FANY AICHHOLZ Not Available Start: 02-22-2024 End: 02-22-2024 Office outpatient visit 15 minutes Fany Bergman STORY EDITOR Work Phone: [facility] Comment on above: Acute foot pain, lef t (Primary Dx); Class 1 obesity due to excess calories without serious comorbidity with body mass index (BMI) of 34.0 to 34.9 in adult Start: 02-07-2024 End: 02-07-2024 ambulatory FANY AICHHOLZ Not Available Start: 01-03-2024 End: 01-03-2024 ambulatory FANY AICHHOLZ Not Available Start: 12-28-2023 Patient encounter status Fany Pacheco STORY EDITOR Work Phone: [facility] Healthcare Start: 04-23-2023 End: 04-24-2023 ambulatory Freddy MOSBY Facility:[facility] Start: 07-17-2022 End: 07-18-2022 ambulatory 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 FANY PACHECO Facility: Start: 06-29-2022 End: 06-30-2022 ambulatory 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 FANY AICHHOLZ Facility:[facility] Start: 06-16-2022 End: 06-17-2022 ambulatory ADIN BERGMAN Facility:[facility] Start: 05-31-2022 End: 05-31-2022 ambulatory REFUGIO Delaney Facility:[facility] Start: 11-19-2021 End: 11-20-2021 ambulatory ADIN BERGMAN Facility:[facility] Start: 09-30-2021 End: 10-01-2021 ambulatory ANGÉLICA CALDERÓN Facility:[facility] Start: 09-23-2021 End: 09-24-2021 ambulatory ADIN BERGMAN Facility:[facility] Start: 09-04-2021 End: 09-05-2021 ambulatory ADIN BERGMAN Facility:[facility] Start: 08-22-2018 End: 08-23-2018 Emergency department patient visit NO FAMILY PHYSICIAN Facility:[facility] Procedures Date Procedure Procedure Detail Performing Clinician Start: 08-23-2018 Throat culture Comment on above: Performed By: #### C UT #### [address] Plan of Treatment Date Care Activity Detail Author Start: 07-05-2024 End: 07-05-2024 Patient encounter procedure 07/05/2024 6:00 PM EST Office Visit [facility] [address] [place] [address] Fany Bergman NP [address] [place] [id number] [facility] Payers Date Payer Category Payer Private Health Insurance [facility] [id number] 2023-Present [address] [place] [id number] 2023 Private Health Insurance [id number] 2018 Self-pay 1987 Unknown [id number]. 593 1987 Unknown [id number] 2.16.840.1.777754.3.579.2. 593 1987 Unknown [id number] 2.16.840.1.350581.3.579.2. 593 1987 Unknown [id number] 2.16.840.1.233941.3.579.2. 593 1987 Unknown [id number] 2.16.840.1.390319.3.579.2. 593 1987 Unknown [id number] 2.16.840.1.866605.3.579.2. 593 1987 Unknown [id number] 2.16.840.1.134942.3.579.2. 593 1987 Unknown [id number] 2.16.840.1.951848.3.579.2. 593 1987 Unknown [id number] 2.16.840.1.948468.3.579.2. 1259 1987 Unknown [id number] 2.16.840.1.477223.3.579.2. 1259 1987 Unknown [id number] 2.16.840.1.326869.3.579.2. 1259 1959 Unknown [id number] 1959 Unknown [id number] Unknown [id number] 2.16.840.1.260509.3.579.2. 531 Social History Date Type Detail Facility Start: 01-03-2024 Tobacco smoking status [facility] Ex-smoke r [facility] History of tobacco use Current smoker [facility] History of tobacco use Cigarette Smoker [facility] Start: 01-03-2024 Tobacco use and exposure Smoke less tobacco non-user [facility] Start: 02-07-2024 End: 02-22-2024 Alcoholic beverage intake Current drinker of alcohol (finding) [facility] Start: 01-03-2024 End: 02-07-2024 Alcoholic beverage intake [facility] Start: 01-03-2024 End: 02-07-2024 B1300 Health Literacy [facility] How often do you nee d to have someone help you when you read instructions, pamphlets, or other written material from your doctor or pharmacy [SILS] Rarely [facility] Do you belong to any clubs or organizations such as latter-day groups, unions, fraternal or athletic groups, or school groups? Yes [facility] Are you now , , , , never or living with a partner? [facility] How often to you hav e a drink containing alcohol? 2-4 times a month [facility] How many standard dr inks containing alcohol do you have on a typical day? 5 or 6 [facility] How often do you hav e 6 or more drinks on 1 occasion? Monthly [facility] How hard is it for y ou to pay for the very basics like food, housing, medical care, and heating Not very hard [facility] Do you feel stress - tense, restless, nervous, or anxious, or unable to sleep at night because your mind is troubled all the time - these days [OSQ] To some extent [facility] (I/We) worried wheth er (my/our) food would run out before (I/we) got money to buy more. Never true [facility] In the past 12 month s, was there a time when you were not able to pay the mortgage or rent on time? No [facility] Start: 01-03-2024 Alcohol Comment caffine: energ y drinks, pre workout 2-3 daily [facility] Start: 1985 Sex assigned at Not on file [facility] History of Present illness Narrative 02-22-2024 Fany Bergman NP - 02/22/2024 9:30 AM Annabelle Bergman NP - 02/22/2024 8:40 AM EDT Note Date & Type Note Facility 02-22-2024 History of Presen t illness Narrative Associated Problem(s): Acute foot pain, left Xray is negative for fracture Will refer to podiatry Off work note given RICE therapy Images from the original note were not included. Lexi Westbrook is a 38 y.o. male presents with chief complaint of No chief complaint on file. HPI: Foot Injury The incident occurred 5 to 7 days ago. There was no injury mechanism. The pain is present in the left foot. The quality of the pain is described as aching, stabbing and burning. The pain is moderate. The pain has been Fluctuating since onset. Associated symptoms include an inability to bear weight. Pertinent negatives include no loss of sensation, numbness or tingling. He reports no foreign bodies present. The symptoms are aggravated by weight bearing. He has tried NSAIDs for the symptoms. The treatment provided no relief. SUBJECTIVE: MEDICATIONS: Current Outpatient Medications Medication Instructions albuterol HFA 90 mcg/act inhaler 2 puffs, Inhalation, Every 6 hours PRN albuterol 2.5 mg, Nebulization, Every 6 hours PRN dexAMETHasone (DECADRON) 6 mg, Oral, Daily HYDROcodone-acetaminophen ([place]) 5-325 MG tablet 2 tablets, Oral, Every 6 hours PRN ketorolac (TORADOL) 10 mg, Every 8 hours PRN montelukast (SINGULAIR) 10 mg, Oral, Nightly ALLERGIES: No Known Allergies REVIEW OF SYMPTOMS: Review of Systems Constitutional: Negative for activity change, appetite change and unexpected weight change. HENT: Negative for ear pain, nosebleeds, sneezing, trouble swallowing and voice change. Eyes: Negative for pain, discharge and visual disturbance. Respiratory: Negative for apnea, chest tightness and wheezing. Cardiovascular: Negative for leg swelling. Gastrointestinal: Negative for abdominal distention, blood in stool, constipation and diarrhea. Genitourinary: Negative for decreased urine volume, difficulty urinating, dysuria and hematuria. Musculoskeletal: Positive for arthralgias. Skin: Negative for color change. Neurological: Negative for dizziness, tingling, tremors, seizures and numbness. Psychiatric/Behavioral: Negative for agitation, decreased concentration, hallucinations, self-injury and suicidal ideas. The patient is not nervous/anxious. Hematological: Negative for adenopathy. Does not bruise/bleed easily. Endocrine: Negative for cold intolerance, heat intolerance, polydipsia and polyuria. Allergic/Immunologic: Negative for environmental allergies and food allergies. PAST MEDICAL HISTORY No past medical history on file. No past surgical history on file. family history is not on file. OBJECTIVE: Visit Vitals BP 122/80 (BP Location: Left arm, Patient Position: Sitting, BP Cuff Size: Adult long) Pulse 108 Temp 98.5 F (Temporal) Resp 18 Ht 5' 8 Wt 224 lb 9.6 oz SpO2 98% BMI 34.15 kg/m Smoking Status Former BSA 2.21 m Physical Exam Vitals and nursing note reviewed. Constitutional: Appearance: Normal appearance. HENT: Head: Normocephalic. Right Ear: External ear normal. Left Ear: External ear normal. Nose: Nose normal. Mouth/Throat: Mouth: Mucous membranes are moist. Pharynx: Oropharynx is clear. Eyes: Extraocular Movements: Extraocular movements intact. Conjunctiva/sclera: Conjunctivae normal. Cardiovascular: Rate and Rhythm: Normal rate and regular rhythm. Pulses: Normal pulses. Heart sounds: Normal heart sounds. Pulmonary: Effort: Pulmonary effort is normal. Breath sounds: Normal breath sounds. Musculoskeletal: Cervical back: Neck supple. Comments: Left foot: +Dp/PT pulse, cap refill less than 3 seconds Tenderness about the lateral aspect of the left foot Pain with inversion left foot, achilles appears intact, calf is soft Skin: General: Skin is warm and dry. Capillary Refill: Capillary refill takes 2 to 3 seconds. Neurological: General: No focal deficit present. Mental Status: He is alert. Psychiatric: Mood and Affect: Mood normal. Behavior: Behavior normal. Thought Content: Thought content normal. Judgment: Judgment normal. ASSESSMENT AND PLAN: No follow-ups on file. Problem List Items Addressed This Visit Class 1 obesity due to excess calories without serious comorbidity with body mass index (BMI) of 34.0 to 34.9 in adult Acute foot pain, left - Primary Xray is negative for fracture Will refer to podiatry Off work note given RICE therapy documented in this encounter [facility] Healthcare Instructions 02-22-2024 Patient Instructions Note Date & Type Note Facility 02-22-2024 Instructions Fany Bergman NP - 02/22/2024 8:40 AM EDT Appt with dr javier mendiola, 02/23/2024 at 8:15am, cont with Ice, elevation, thomas wrap and anti inflammatory medication Work note given documented in this encounter [facility] Evaluation note Note Date & Type Note Facility Evaluation note Diagnosis Acute foot pain, left- Primary Class 1 obesity due to excess calories without serious comorbidity with body mass index (BMI) of 34.0 to 34.9 in adult documented in this encounter [facility] Reason for referral (narrative) Consultation (Urgent) - Pending Review Note Date & Type Note Facility Reason for referral (narrati ve) Specialty Diagnoses / Procedures Referred By Contnidia t Referred To Contact Podiatry Diagnoses Acute foot pain, left Procedures [place] OFFICE/OUTPATIENT NEW HIGH MDM 60 MINUTES Fany Bergman NP [address] [place] [address] Javier Mendiola MD [address] [place] [address] [place] [address] Referral ID Status Reason Start Date Expiration Date Visits Requested Visits Authorized [id number] Pending Review Specialty Services Required 02/22/2024 08/20/2024 1 1 Scheduling Instructions Already scheduled for 02/23/2024: 8:15 am [facility] Summary Purpose Family History No Family History [...] section and content) DATE CREATED AUTHOR 08/27/2018 [facility] DATE CREATED AUTHOR AUTHOR'S ORGANIZ ATION 07/24/2022 [facility] Castell[facility] DATE CREATED AUTHOR AUTHOR'S ORGANIZ ATION 04/27/2023 [facility] DATE CREATED AUTHOR AUTHOR'S ORGANIZ ATION 02/23/2024 [facility] dical Specialists EPIC Care Teams (unrecognized sec tion and content) Field Marketing Representative Relationship Specialty Start Date End Date Grayson Louise MD [address] [place] [id number] PCP - General Family Medicine 01/03/24 Fany Bergman NP [address] [place] [address] Nurse Practitioner [facility] 01/03/24 Field Marketing Representative Relationship Specialty Start Date End Date Grayson Louise MD [address] [place] [address] PCP - General Family [facility] 01/03/24 Fany Bergman NP [address] [place] [id number] Nurse Practitioner Family Medicine 01/03/24 FOR RECORDS PERTAINING TO PATIENTS WHO ARE [...] BE BASED ON THE PRIMARY CLINICAL RECORDS. [facility] [employer] [facility]. provides no warranty or guarantee of the accuracy or completeness of information in this document.
== END 2024-03-09 13:48 | disposition home or self-care (01) ==
LOC: CT 13:47
PROVIDERS: PCP Nurse Practitioner; Visit Provider Podiatrist Foot & Ankle Surgery
DX: M25.872 Other specified joint disorders, left ankle and foot (principal)
CPT/HCPCS: 73700

== ENCOUNTER 2025-05-10 16:09 | Emergency (ER) | payer OTHER, SELFPAY ==
[2025-05-10 16:39] VITALS: BP 140/106; PULSE 90; TEMP 36.7; O2SAT 98; BMI 35.7
--- OUTSIDE RECORDS SUMMARY | 2025-05-10 17:14 | XMS_ITS | Clinical Summary ---
Author Organization [facility] Address [address] [address] Care Team Providers Care Wall Attendant Name Role Phone Unavailable Primary Care Provider Unavailabl e Social History Tobacco UseTypesPacks/DayYears UsedDateSmoking Tobacco: Never AssessedUT Safety & EnvironmentAnswerDate RecordedFear of Current or Ex-PartnerNot on file 07/15/2023Emotionally AbusedNot on file07/15/2023hysically AbusedNot on file 07/15/2023Sexually AbusedNot on file07/15/2023hysically or Sexually AbusedNot on file07/15/2023Sex and Gender InformationValueDate RecordedSex Assigned at BirthNot on fileLegal FliVzoy9612/11/2021 7:26 AM EDTGender IdentityNot on file Sexual OrientationNot on file Plan of Treatment Not on file
--- OUTSIDE RECORDS SUMMARY | 2025-05-10 17:14 | XMS_ITS | Clinical Summary ---
Author Organization [facility] Address [address] [place] [address] Care Team Providers Care Adjunct Professor Of Voice Name Role Phone Grayson Louise MD Primary Care Provider [phone] Fany Bergman NP Unavailable [phone] Allergies No known active allergies Medications MedicationSigDispense QuantityRefillsLast FilledStart DateEnd DateStatus albuterol (2.5 MG/3ML) 0.083% nebulizer solution Take 2.5 mg by nebulization every 6 (six) hours if needed for shortness of breath or jbflgyzw78/26/2024ctive ketorolac (Toradol) 10 MG tablet 10 mg every 8 (eight) hours if needed for moderate pain02/17/2024ctive HYDROcodone-acetaminophen ([place]) 5-325 MG tablet Take 2 tablets by mouth every 6 (six) hours if needed for severe pain02/17/2024 Active montelukast (Singulair) 10 MG tablet Indications:Mild persistent asthma with status asthmaticus (HCC)Take 1 tablet (10 mg) by mouth at bedtime 90 tablet 5Active albuterol HFA 90 mcg/act inhaler Indications:Mild persistent asthma with status asthmaticus (HCC)Inhale 2 puffs every 6 (six) hours if needed for wheezing or shortness of breath 18 g 5Active Fluticasone Furoate-Vilanterol (Breo Ellipta) 100-25 MCG/ACT aerosol powder Indications:Mild persistent asthma with status asthmaticus (HCC)Inhale 1 puff Daily Rinse mouth after use 3 each 5Active Active Problems ProblemNoted DateDiagnosed DateAcute foot pain, left02/22/2024 Assessment & Plan (02/22/2024 9:30 AM EDT): Xray is negative for fracture Will refer to podiatry Off work note given RICE therapy COVID02/07/2024 Assessment & Plan (02/07/2024 4:54 PM EDT): Suspect this current sxs are COVID, with similar symptoms and was seen at urgent care and thenreferred on to ER for evaluation At this point I am going to treat for presumptive positive We will order PAXLOVID, steroids, inhaler, as well as Bromfed DM If worsening in sxs go to ER Return to work based on company policy for RTW Work note given for yesterday and next 2 days Class 1 obesity due to excess calories without serious comorbidity with body mass index (BMI) of 34.0 to 34.9 in adult01/03/2024Gastroesophageal reflux disease without evjavirviwk79/06/2024Mild persistent asthma with status doprpjmjltk26/06/2024 Assessment & Plan (02/07/2024 4:52 PM EDT): Refill rescue inhaler, is compliant with BREO as well as singulair Assessment & Plan (01/03/2024 5:59 PM EDT): Restart BREO and singulair [facility], no mention of mail order on his insurance card I did provide him Trelegy 100 samples, Lot: [id number], exp 04/17 #2 Until can get BREO Albuterol prn-uses 1-2 times week when taking his meds, however has been out of breo and singulair for a few months Fu in 6 months Elevated antistreptolysin O titer12/28/2023Elevated sed rate12/28/2023Elevated alkaline phosphatase level12/28/2023Wellness vwtnhivzfja93/06/2024 Assessment & Plan (01/03/2024 5:59 PM EDT): Reviewed Ht/Wt/BMI Recommend eye exam yearly Recommend dental exams twice a year Balance work/leisure activities Exercises is recommended most days of the week (appropriate as chronic conditions allow) Follow up yearly and prn Resolved Problems ProblemNoted DateDiagnosed DateResolved DateCurrent tobacco use12/28/2023 02/07/2024 Social History Tobacco UseTypesPacks/DayYears UsedDateSmoking Tobacco: FormerCigarettes Smokeless Tobacco: Never Tobacco Cessation:Counseling Given: Not Answered Alcohol UseStandard Drinks/WeekCommentsYes5 (1 standard drink = 0.6 oz pure alcohol)caffine: energy drinks, pre workout 2-3 [id number] Health LiteracyAnswer Date RecordedHow often do you need to have someone help you when you read instructions, pamphlets, or other written material from your doctor or pharmacy? Kbpkrg2402/07/2024Social Connection and Isolation PanelAnswerDate RecordedIn a typical week, how many times do you talk on the phone with family, friends, or neighbors?Once a week02/07/2024How often do you get together with friends or relatives?Once a week02/07/2024How often do you attend jain or mormonism services?Never02/07/2024o you belong to any clubs or organizations such as jain groups, unions, fraternal or athletic groups, or school groups?Yes 02/07/2024How often do you attend meetings of the clubs or organizations you belong to?More than 4 times per year02/07/2024re you , , , , never , or living with a partner?Ehqslll4602/07/2024 AUDIT-CAnswerDate RecordedQ1: How often do you have a drink containing alcohol? 2-4 times a month02/07/2024Q2: How many drinks containing alcohol do you have on a typical day when you are drinking?5 or 6002/07/2024Q3: How often do you have six or more drinks on one occasion?Zdmxmtj0602/07/2024Overall Financial Resource Strain (CARDIA)AnswerDate RecordedHow hard is it for you to pay for the very basics like food, housing, medical care, and heating?Not very hard02/07/2024 PHQ-2AnswerDate RecordedPatient Health Questionnaire-2 Dzgop117[facility] Occupational Health - Occupational Stress QuestionnaireAnswerDate RecordedDo you feel stress - tense, restless, nervous, or anxious, or unable to sleep at night because yourmind is troubled all the time - these days?To some lyqpml6902/07/2024Exercise Vital SignAnswerDate RecordedOn average, how many days per week do you engage in moderate to strenuous exercise (like a brisk walk)?4 days02/07/2024On average, how many minutes do you engage in exercise at this level?110 min02/07/2024Hunger Vital SignAnswerDate RecordedWithin the past 12 months, you worried that your food would run out before you got the money to buy more.Never true02/07/2024Within the past 12 months, the food you bought just didn't last and you didn't have money to get more.Never true02/07/2024RAPARE - TransportationAnswerDate RecordedIn the past 12 months, has lack of transportation kept you from medical appointments or from getting medications?No 02/07/2024In the past 12 months, has lack of transportation kept you from meetings, work, or from getting things needed for daily living?No02/07/2024 Housing Stability Vital SignAnswerDate RecordedIn the last 12 months, was there a time when you were not able to pay the mortgage or rent on time?No02/07/2024In the past 12 months, how many times have you moved where you were living?0 02/07/2024t any time in the past 12 months, were you homeless or living in a nursing home (including now)?No02/07/2024Sex and Gender InformationValueDate Recorded Sex Assigned at BirthNot on fileLegal VraXebj5707/12/2023 3:20 PM ESTGender IdentityNot on fileSexual OrientationNot on file Last Filed Vital Signs Vital SignReadingTime TakenCommentsBlood Cvrmowha667/801 8:54 AM EDT Dkfyg09540/01/2024 8:54 AM WHTBfihiyczboj80.9 ??C (98.5 ??F)02/22/2024 8:54 AM EDTRespiratory Jemw8903 8:54 AM EDTOxygen Dbywdzylpb75%02/22/2024 8:54 AM EDTInhaled Oxygen Concentration--Blaxcg046 kg (224 lb 9.6 oz)02/22/2024 8:54 AM ICMUbtptz939.7 cm (5' 8 )02/22/2024 8:54 AM EDTBody Mass Index34.151 8:54 AM EDT Plan of Treatment Not on file Insurance Care Teams Team MemberRelationshipSpecialtyStart DateEnd Date Grayson Louise MD PCP - GeneralFamily Medicine01/03/24 Fany Bergman NP Nurse PractitionerFamily Medicine01/03/24
--- OUTSIDE RECORDS SUMMARY | 2025-05-10 17:15 | XMS_ITS | Patient Health Record ---
Author Organization [facility] [place] Address [address] [place] [address] Care Team Providers Care Shoe Repair Cobbler Name Role Phone None, Unknown or Primary Care Provider Unavailab le Allergies No Known Allergies Reason For Referral No Information Medications Medication SIG (Take, Route, Frequency, Duration) Notes Start Date End Date Status Fluticasone Furoate 100 MCG/ACT 1 puff Inhalatio n Once a day ActiveMontelukast Sodium 10 MG1 tablet Orally Once a dayActive Social History Tobacco Use: Social History Observation Description Date Details (start date - stop date) Never Smoker NA - NA Tobacco Control (Standard) Question Answer Notes Tobacco use: Nonsmoker Problems Problem Type SNOMED Code ICD Code Onset Dates Problem Status W/U Status Risk Notes Problem Arthralgia of the ankle and/or f oot (123552024) Left ankle pain (M25.572) Activeconfirmed Plan Of Treatment Pending Test Test Name Order Date CT Ankle LT w/o contrast * (Optional 3D Rendering) 02/23/2024 CT ANKLE LT WO CON 03/10/2024 Insurance Providers Payer Name Payer Address Payer Phone Subscriber Number Group Number Insured Name Patient Relationship to Insured Coverage Start Date Coverage End Date [employer] - [employer] [address] [place] [id number] Ramirez Roche Self - patient is the insured 4
--- NOTE | 2025-05-10 17:43 | ED_ITS ---
HPI HPI - General Adult General Chief complaint: Dental/Oral Stated complaint: INFECTION ON LOWER PART OF FACE Time Seen by Provider: 05/10/25 16:51 Source: patient and family Mode of arrival: walk-in Limitations: no limitations History of Present Illness HPI narrative: Patient is a 39-year-old male who presents to the emergency department with complaints of right ear pain that started 2 days ago. The pain then progressed down his jaw to the front and back gums of his front bottom teeth. He did feel feverish and had chills on Wednesday, 2 days ago. He has been here previously for dental abscess and has not seen a dentist in about 3 years. He states the last time he saw a dentist he had to have a few teeth removed. Related Data Home Medications ?Medication ?Instructions ?Recorded ?Confirmed montelukast 10 mg tablet 10 mg PO DAILY 02/21/2301/23 fluticasone furoate 100 1 inh inhalation DAILY 02/1502/16/24 mcg-vilanterol 25 mcg/dose inhalation powder (Breo Ellipta) Previous Rx's ?Medication ?Instructions ?Recorded hydrocodone 5 mg-acetaminophen 325 1 tab PO Q6H PRN pa in 2 days #8 02/16/24 mg tablet tabs ketorolac 10 mg tablet 10 mg PO TID PRN pain #10 ta bs 02/16/24 amoxicillin 875 mg-potassium 1 tab PO BID 10 days #20 tabs 05/10/25 clavulanate 125 mg tablet Allergies Allergy/AdvReac Type Severity Reaction Status Date / Time No Known Drug Allergies Allergy Verified 05/10/25 16:44 Opioid HPI Opioid Management Most Recent Opioid Data: Last Pain Scale 10 02/16/24, 21:06 Review of Systems ROS Status of ROS 10 or more systems reviewed and unremark able except as noted in history and below PFSH [facility] Medical History (Updated 05/10/25 @ 17:50 by JANICE Ortiz) Asthma ?J45.909 - Unspecified asthma, uncomplicated (ICD-10) Social History Smoking status: Never smoker Little interest or pleasure in doing things: not at all Feeling down, depressed, or hopeless: not at all Exam Narrative Exam Narrative: General: No distress, age-appropriate Skin: Warm, dry, no pallor. No rash. Head: Normocephalic, atraumatic. Neck: Supple, non-tender. Eye: Pupils are equal, round and EOMI. No scleral icterus. Ears, Nose, Mouth, and Throat: TMs clear BL, no erythema or bulging. No nasal mucosal hypertrophy. Oral mucosa is moist, no posterior oropharynx erythema, uvula is mid-line. No trismus. Gingivitis noted anterior/posteriorly teeth #23, #24, #25, #26. No jaw swelling. No abscess visualised. Cardiovascular: Regular Rate and Rhythm without murmur, gallop or rub. Respiratory: No accessory muscle use or respiratory distress. Neurological: A&O x4. No cranial nerve dysfunction observed. No truncal ataxia. Moves all extremities. Sensation intact. Psychiatric: Cooperative and interactive. Normal mood and affect. Constitutional Vital Signs, click to edit/add: Last Vital Signs Temp 98.1 F 05/10/25 16:39 Pulse 90 05/10/25 16:39 Resp 16 05/10/25 16:39 BP 140/106 H 05/10/25 16:39 Pulse Ox 98 05/10/25 16:39 O2 Del Method Room Air 05/10/25 16:39 Documenting provider has reviewed patient's vital signs: yes Course Vital Signs Vital signs: Vital Signs Temperature 98.1 F 05/10/25 16:39 Pulse Rate 90 05/10/25 16:39 Respiratory Rate 16 05/10/25 16:39 Blood Pressure 140/106 H 05/10/25 16:39 Pulse Oximetry 98 05/10/25 16:39 Oxygen Delivery Method Room Air 05/10/25 16:39 Temperature 98.1 F 05/10/25 16:39 Pulse Rate 90 05/10/25 16:39 Respiratory Rate 16 05/10/25 16:39 Blood Pressure 140/106 H 05/10/25 16:39 Pulse Oximetry 98 05/10/25 16:39 Oxygen Delivery Method Room Air 05/10/25 16:39 Medical Decision Making MDM Narrative Medical decision making narrative: The patient is a 39-year-old male presenting with right-sided ear and jaw pain radiating to the mandibular gingiva. Given his history of poor dentition and prior dental abscesses, an odontogenic source was strongly considered. Physical examination revealed gingivitis and dental caries involving teeth #23?26 without visible abscess, fluctuance, facial or jaw swelling, or trismus. Vitals stable and patient afebrile. There were no signs of deep space infection, Sohan?s angina, or airway compromise. Otoscopic exam did not reveal acute otiti s media or externa. Although the patient reported subjective fever and chills earlier in the week, he was hemodynamically stable in the ED with no systemic toxicity. Imaging was considered but not indicated at this time due to absence of swelling, trismus, or focal abscess. The presentation was most consistent with early odontogenic infection/cellulitis. Dental anesthesia was provided in the ED with adequate pain relief; the patient declined additional analgesics. He was discharged on amoxicillin-clavulanate 875 mg twice daily for 10 days with instructions for urgent dental follow-up and strict return precautions for worsening pain, swelling, fever, dysphagia, or difficulty breathing. Patient discharged in stable condition. Differential Diagnosis Differential Diagnosis: Dental abscess, mandibular osteomyelitis, otitis media Discharge Plan Discharge Chief Complaint: Dental/Oral Clinical Impression: Dental caries, Dental abscess Patient Disposition: Home, Self-Care Time of Disposition Decision: 17:43 Condition: Good Mode of Transportation: Private Vehicle Prescriptions / Home Meds: New amoxicillin-pot clavulanate 875-125 mg tablet 1 tab PO BID 10 Days Qty: 20 0RF No Action montelukast 10 mg tablet 10 mg PO DAILY fluticasone furoate-vilanterol [Breo Ellipta] 100-25 mcg/dose blister with device 1 inh INHALATION DAILY hydrocodone-acetaminophen 5-325 mg tablet 1 tab PO Q6H PRN (Reason: pain) 2 Days Qty: 8 0RF Rx Instructions: M79.672 ketorolac 10 mg tablet 10 mg PO TID PRN (Reason: pain) Qty: 10 0RF Print Language: Vincentian Instructions: Dental Abscess (ED) Referrals: Dentist [Other] - 1 week Fany Bergman NP [Primary Care Provider, Family Practice] - 1 week Discharge Date/Time: 05/10/25 18:00
== END 2025-05-10 18:00 | disposition home or self-care (01) ==
PROVIDERS: Emergency Provider Emergency Medicine; PCP Nurse Practitioner
DX: K02.9 Dental caries, unspecified (principal)
CPT/HCPCS: 99283

== ENCOUNTER 2025-05-14 19:38 | Emergency (ER) | payer OTHER, SELFPAY ==
[2025-05-14] VITALS (21 sets, daily range): BP systolic 130–165; BP diastolic 71–99; PULSE 76–109; TEMP 37–37.2; O2SAT 95–100; BMI 36.5
--- NOTE | 2025-05-14 19:58 | CT_ITS ---
The [address] [address] Patient Name: LEXI WESTBROOK MRN: [id number] date: 1985 Sex: M Assigned Patient Location: ER Current Patient Location: ED.MAIN Accession/Order Number: [id number] Exam Date: 05/14/2025 20:24 Report Date: 05/14/2025 21:01 At the request of: IVAN ALANIZ MD Procedure: CT head/brain wo con Unenhanced head CT TECHNIQUE: Contiguous axial imaging of the head. The CT exam was performed using one or more the following dose reduction techniques: Automated exposure control, adjustment of the MA and/or Kv according to patient size, or use of the iterative reconstruction technique. COMPARISON: None HISTORY: Left frontal headache. Weakness. Dizziness. VENTRICLES: Within normal limits ATROPHY: None BRAIN PARENCHYMA: Adequate baumann-white matter differentiation identified. HEMORRHAGE: None HERNIATION: No mass effect or herniation INFARCTION: No recent vascular distribution infarction is seen. EXTRA-AXIAL FLUID COLLECTIONS None MIDBRAIN: Unremarkable NIMA: Unremarkable MEDULLA: Unremarkable SINUSES: Unremarkable ORBITS: Grossly unremarkable MASTOIDS: Unremarkable BONY STRUCTURES Intact ADDITIONAL FINDINGS: CT/CT head/brain wo con IMPRESSION: No acute findings. Impression dictated by: Freddy Howard M.D. 05/14/2025 9:01 PM Dictation Location: [place] [address] Electronically authenticated by: [id number] Y Date: 05/14/2025 21:01
--- NOTE | 2025-05-14 20:00 | ED.GENADUL1 ---
HPI HPI - General Adult General Chief complaint: Headache Stated complaint: Headache, weakness, dizziness Time Seen by Provider: 05/14/25 19:53 Source: patient Mode of arrival: walk-in Limitations: no limitations History of Present Illness HPI narrative: This 39-year-old male presents for evaluation of multiple complaints. He states he has a severe throbbing headache. It is global in nature and comes and goes. It is associated with nausea, photophobia and phonophobia. The patient states he has been sick since Wednesday. He was seen here on Wednesday for dental problems and given a prescription for antibiotics. He states that after that he broke out with vesicles in his mouth and lips. That has mostly resolved but he still has a small blister on his lower lip. He developed this headache earlier today associated with nausea and vomiting. He denies any chest pain or shortness of breath. He does not have any generalized skin rash petechia or purpura. He does not have any neck pain or stiffness. He denies any chest pain or shortness of breath. He has no focal neurologic weakness numbness or tingling. He does not have any slurred speech or confusion. He has taken NyQuil and ibuprofen at home without significant improvement. Related Data Home Medications ?Medication ?Instructions ?Recorded ?Confirmed montelukast 10 mg tablet 10 mg PO DAILY 02/21/23 02/16/24 fluticasone furoate 100 1 inh inhalation DAILY 02/16/24 02/16/24 mcg-vilanterol 25 mcg/dose inhalation powder (Breo Ellipta) Previous Rx's ?Medication ?Instructions ?Recorded hydrocodone 5 mg-acetaminophen 325 1 tab PO Q6H PRN pain 2 days #8 02/16/24 mg tablet tabs ketorolac 10 mg tablet 10 mg PO TID PRN pain #10 tabs 02/16/24 amoxicillin 875 mg-potassium 1 tab PO BID 10 days #20 tabs 05/10/25 clavulanate 125 mg tablet Allergies Allergy/AdvReac Type Severity Reaction Status Date / Time No Known Drug Allergies Allergy Verified 05/14/25 19:48 Opioid HPI Opioid Management Most Recent Opioid Data: Last Pain Scale 5 Today, 21:47 Last ED Pain Assessment Today, 21:47 Last MAR Pain Assessment Today, 21:14 Review of Systems ROS Status of ROS 10 or more systems reviewed and unremarkable except as noted in history and below PFSH PFSH Medical History (Updated 05/14/25 @ 22:23 by Juana Posada MD) Asthma ?J45.909 - Unspecified asthma, uncomplicated (ICD-10) Social History Smoking status: Never smoker Little interest or pleasure in doing things: not at all Feeling down, depressed, or hopeless: not at all Exam Narrative Exam Narrative: Vital signs and Nursing Notes reviewed: Patient is afebrile, tachycardic with a pulse of 109 and blood pressure is elevated 154/93, he is not hypoxic with pulse ox of 99% on room air General: Awake, alert, oriented, mildly uncomfortable appearing adult male, GCS 15, no respiratory distress HEENT: Normocephalic atraumatic, mucous membranes are moist and pink, eyes are clear, normal conjunctiva, vision is grossly intact, posterior pharynx is normal in appearance. There is a small resolving vesicle on the lower lip, otherwise I do not appreciate any oral vesicles, there is no sign of necrotizing gingivitis, there is no posterior pharyngeal erythema or exudate noted, there is no pooling of secretions Neck: Supple, no meningeal signs Chest: Lungs are clear to auscultation with good air entry, there is no wheezing rhonchi or rales appreciated no accessory muscle use, patient is speaking in complete sentences-no chest wall tenderness to palpation CVS: Regular rate and rhythm S1-S2, no murmurs rubs or gallops, pulses are brisk and equal bilaterally ABD: Soft, nondistended, nontender, no rebound guarding or rigidity, bowel sounds are normal, no pulsatile masses appreciated Extremities: Moving all extremities, no lower extremity tenderness or swelling noted, negative Homans' sign, pulses are brisk and equal bilaterally Skin: Normal in appearance without rash,pallor, petechiae or purpura Neuro: No focal deficits; speech is clear, environmental services supervisor strength is intact, upper and lower extremity strength and sensation is normal. Constitutional Vital Signs, click to edit/add: Last Vital Signs Temp 98.6 F 05/14/25 19:48 Pulse 109 H 05/14/25 19:48 Resp 19 05/14/25 19:48 BP 136/85 05/14/25 21:00 Pulse Ox 98 05/14/25 21:10 O2 Del Method Room Air 05/14/25 19:48 Course Vital Signs Vital signs: Vital Signs Blood Pressure 154/93 H 05/14/25 19:45 Pulse Oximetry 99 05/14/25 19:45 Temperature 98.6 F 05/14/25 19:48 Pulse Rate 109 H 05/14/25 19:48 Respiratory Rate 19 05/14/25 19:48 Blood Pressure 136/85 05/14/25 21:00 Pulse Oximetry 98 05/14/25 21:10 Oxygen Delivery Method Room Air 05/14/25 19:48 Medical Decision Making MDM Narrative Medical decision making narrative: This 39-year-old male presents for evaluation of a intermittent throbbing headache associated with nausea vomiting photophobia and phonophobia. Symptoms started earlier today. He was recently seen in this emergency department for a dental infection. He states that after that his mouth broke out with sores. He does have 1 small resolving blister on his lower lip but otherwise I do not appreciate any severe dental disease or oral ulcers or vesicles. He does not have any nuchal rigidity. Signs were stable upon arrival with mild elevation in his pulse at 109. His neuroexam is normal. He did not have any active vomiting in the emergency department. An IV was placed and he was medicated with IV fluids, Zofran, Toradol and Solu-Medrol. CT scan of the brain was ordered due to the acute onset and severity of his headache. CT scan is negative for acute findings. His white count is minimally elevated at 13.1 with a stable hemoglobin. Electrolytes are normal. He has an elevation in his sed rate and CRP. And reevaluation he is feeling better. His pain has resolved and his nausea has improved. He will be discharged home with a prescription for Phenergan to use for recurrent migraine-like headaches. Lab Data Labs: Lab Results 05/14/25 05/14/25 Range/Units 20:15 20:47 WBC 13.1 H (4.0-11.0) 10^3/uL RBC 5.22 (4.70-6.10) 10^6/uL Hgb 15.3 (14.0-18.0) g/dL Hct 45.0 (42.0-54.0) % MCV 86.2 (80.0-94.0) fL MCH 29.3 (25.9-34.0) pg MCHC 34.0 (29.9-35.2) g/dL RDW 12.6 (11.0-15.0) % Plt Count 419 (150-450) 10^3/uL MPV 9.9 (9.5-13.5) fL Neut % (Auto) 79.6 H (43.0-75.0) % Lymph % (Auto) 14.4 L (20.5-60.0) % [place] % (Auto) 4.3 (1.7-12.0) % Eos % (Auto) 0.8 L (0.9-7.0) % Baso % (Auto) 0.4 (0.2-2.0) % Neut # (Auto) 10.4 H (1.4-6.5) 10^3/uL Lymph # (Auto) 1.9 (1.2-3.8) 10^3/uL [place] # (Auto) 0.6 (0.3-0.8) 10^3/uL Eos # (Auto) 0.1 (0.0-0.7) 10^3/uL Baso # (Auto) 0.1 (0.0-0.1) 10^3/uL Abs Immat Gran (auto) 0.06 H (0.00-0.03) 10^3/uL Imm/Tot Granulo (auto) 0.5 (0.0-0.5) % ESR 60 H (<=15) mm/hr Sodium 140 (136-145) mmol/L Potassium 4.0 (3.5-5.1) mmol/L Chloride 104 (98-107) mmol/L Carbon Dioxide 29.7 (21.0-32.0) mmol/L Anion Gap 10.3 BUN 13.0 (7.0-18.0) mg/dL Creatinine 1.00 (0.70-1.30) mg/dL Est GFR ( Amer) >60 (>=60 mL/min/1.73m^2) Est GFR (Non-Af Amer) >60 (>=60 mL/min/1.73m^2) BUN/Creatinine Ratio 13.0 Glucose 100 (74-106) mg/dL Calcium 9.3 (8.5-10.1) mg/dL Total Bilirubin 0.3 (0.2-1.0) mg/dL AST 18 (15-37) U/L ALT 30 (16-63) U/L Alkaline Phosphatase 134 H (46-116) U/L C-Reactive Protein 0.83 H (<=0.50) mg/dL Total Protein 8.3 H (6.4-8.2) g/dL Albumin 3.7 (3.4-5.0) g/dL Globulin 4.6 g/dL Albumin/Globulin Ratio 0.8 Influenza Type A Ag Negative Influenza Type B Ag Negative SARS-CoV-2 Ag (CV2AG) Negative (NEGATIVE) Discharge Plan Discharge Chief Complaint: Headache Clinical Impression: Migraine Patient Disposition: Home, Self-Care Time of Disposition Decision: 22:23 Condition: Good Prescriptions / Home Meds: No Action amoxicillin-pot clavulanate 875-125 mg tablet 1 tab PO BID 10 Days Qty: 20 0RF montelukast 10 mg tablet 10 mg PO DAILY fluticasone furoate-vilanterol [Breo Ellipta] 100-25 mcg/dose blister with device 1 inh INHALATION DAILY hydrocodone-acetaminophen 5-325 mg tablet 1 tab PO Q6H PRN (Reason: pain) 2 Days Qty: 8 0RF Rx Instructions: M79.672 ketorolac 10 mg tablet 10 mg PO TID PRN (Reason: pain) Qty: 10 0RF Print Language: German Instructions: Migraine Headache (ED) Referrals: Fany Bergman NP [Primary Care Provider, Family Practice] - 1 week
--- OUTSIDE RECORDS SUMMARY | 2025-05-14 20:40 | XMS_ITS | Clinical Summary ---
Author Organization [facility] Address [address] [place] [address] Care Team Providers Care Supervisor Composing Room Name Role Phone Unavailable Primary Care Provider Unavailabl e Social History Tobacco UseTypesPacks/DayYears UsedDateSmoking Tobacco: Never AssessedUT Safety & EnvironmentAnswerDate RecordedFear of Current or Ex-PartnerNot on file 07/15/2023Emotionally AbusedNot on file07/15/2023hysically AbusedNot on file 07/15/2023Sexually AbusedNot on file07/15/2023hysically or Sexually AbusedNot on file07/15/2023Sex and Gender InformationValueDate RecordedSex Assigned at BirthNot on fileLegal QxaBaas0112/11/2021 7:26 AM EDTGender IdentityNot on file Sexual OrientationNot on file Plan of Treatment Not on file
--- OUTSIDE RECORDS SUMMARY | 2025-05-14 20:40 | XMS_ITS | Clinical Summary ---
Author Organization [facility] Address [address] [place] [address] Care Team Providers Care Investigative Agent Name Role Phone Grayson Louise MD Primary Care Provider [phone] Fany Bergman NP Unavailable [phone] Allergies No known active allergies Medications MedicationSigDispense QuantityRefillsLast FilledStart DateEnd DateStatus albuterol (2.5 MG/3ML) 0.083% nebulizer solution Take 2.5 mg by nebulization every 6 (six) hours if needed for shortness of breath or vpgqetku53/26/2024ctive ketorolac (Toradol) 10 MG tablet 10 mg every 8 (eight) hours if needed for moderate pain02/17/2024ctive HYDROcodone-acetaminophen ([place]) 5-325 MG tablet Take 2 tablets by [...] to 34.9 in adult01/03/2024Gastroesophageal reflux disease without sahmewbyohk03/06/2024Mild persistent asthma with status kopvcwgnhol19/06/2024 Assessment & Plan (02/07/2024 4:52 PM EDT): [...] O titer12/28/2023Elevated sed rate12/28/2023Elevated alkaline phosphatase level12/28/2023Wellness hanopesztri59/06/2024 Assessment & Plan (01/03/2024 5:59 PM EDT): [...] pure alcohol)caffine: energy drinks, pre workout 2-3 [id number] Health LiteracyAnswer Date RecordedHow often do you need to have someone help you when you read instructions, pamphlets, or other written material from your doctor or pharmacy? Ioljrd4402/07/2024Social Connection and Isolation PanelAnswerDate RecordedIn a typical week, how many times do you talk on the phone with family, friends, or neighbors?Once a week02/07/2024How often do you get together with friends or relatives?Once a week02/07/2024How often do you attend zoroastrian or mormon services?Never02/07/2024o you belong to any clubs or organizations such as zoroastrian groups, unions, fraternal or athletic groups, or school groups?Yes 02/07/2024How often do you attend meetings of the clubs or organizations you belong to?More than 4 times per year02/07/2024re you , , , , never , or living with a partner?Ayfzjln8902/07/2024 AUDIT-CAnswerDate RecordedQ1: How often do you have a drink containing alcohol? 2-4 times a month02/07/2024Q2: How many drinks containing alcohol do you have on a typical day when you are drinking?5 or 6002/07/2024Q3: How often do you have six or more drinks on one occasion?Zhskcty8102/07/2024Overall Financial Resource Strain (CARDIA)AnswerDate RecordedHow hard is it for you to pay for the very basics like food, housing, medical care, and heating?Not very hard02/07/2024 PHQ-2AnswerDate RecordedPatient Health Questionnaire-2 Vqaad260[facility] [place] [facility] - Occupational Stress QuestionnaireAnswerDate RecordedDo you feel stress - tense, restless, nervous, or anxious, or unable to sleep at night because yourmind is troubled all the time - these days?To some ynizln6302/07/2024Exercise Vital SignAnswerDate RecordedOn average, how many days [...] were you homeless or living in a longterm (including now)?No02/07/2024Sex and Gender InformationValueDate Recorded Sex Assigned at BirthNot on fileLegal YyjAnwo7207/12/2023 3:20 PM ESTGender IdentityNot on fileSexual OrientationNot on file Last Filed Vital Signs Vital SignReadingTime TakenCommentsBlood Pnxiyjyf332/801 8:54 AM EDT Snzci11679/01/2024 8:54 AM TLPSxucvloyddk20.9 ??C (98.5 ??F)02/22/2024 8:54 AM EDTRespiratory Qmdh3589 8:54 AM EDTOxygen Uulespzeja88%02/22/2024 8:54 AM EDTInhaled Oxygen Concentration--Cfzrom106 kg (224 lb 9.6 oz)02/22/2024 8:54 AM ZMFWcxwye597.7 cm (5' 8 )02/22/2024 8:54 AM EDTBody Mass Index34.151 8:54 AM EDT Plan of Treatment Not on file Insurance Care Teams Team MemberRelationshipSpecialtyStart DateEnd Date Grayson Louise MD PCP - GeneralFamily Medicine01/03/24 Fany Bergman NP Nurse PractitionerFamily Medicine01/03/24
--- OUTSIDE RECORDS SUMMARY | 2025-05-14 20:40 | XMS_ITS | Patient Health Record ---
Author Organization [facility] [place] Address [address] [place] [address] Care Team Providers Care Residential Real Estate Assistant Name Role Phone None, Unknown or Primary [...] Arthralgia of the ankle and/or f oot ([id number]) Left ankle pain (M25.572) Activeconfirmed Plan Of Treatment Pending Test Test Name Order Date CT Ankle LT w/o contrast * (Optional 3D Rendering) 02/23/2024 CT ANKLE LT WO CON 03/10/2024 Insurance Providers Payer Name Payer Address Payer Phone Subscriber Number Group Number Insured Name Patient Relationship to Insured Coverage Start Date Coverage End Date [employer] - [employer] [address] [place] [phone] [id number] Ramirez Roche Self - patient is the insured 4
[2025-05-14 20:42] LABS: Hematocrit 45.0 % (42.0-54.0); Hemoglobin 15.3 g/dL (14.0-18.0); Immature Granulocytes Abs Auto 0.06 10^3/uL (0.00-0.03); Immature Granulocytes Pct Auto 0.5 % (0.0-0.5); Lymphocytes Absolute Auto 1.9 10^3/uL (1.2-3.8); Mean Corpuscular HGB Conc 34.0 g/dL (29.9-35.2); Mean Corpuscular Hemoglobin 29.3 pg (25.9-34.0); Mean Corpuscular Volume 86.2 fL (80.0-94.0); Platelet Count 419 10^3/uL (150-450); Red Blood Count 5.22 10^6/uL (4.70-6.10); White Blood Count 13.1 10^3/uL (4.0-11.0)
[2025-05-14 20:58] LABS: Alanine Aminotransferase 30 U/L (16-63); Albumin Globulin Ratio 0.8; Albumin Level 3.7 g/dL (3.4-5.0); Alkaline Phosphatase 134 U/L (46-116); Anion Gap 10.3; Aspartate Amino Transferase 18 U/L (15-37); Blood Urea Nitrogen 13.0 mg/dL (7.0-18.0); Calcium 9.3 mg/dL (8.5-10.1); Carbon Dioxide 29.7 mmol/L (21.0-32.0); Chloride 104 mmol/L (98-107); Estimated GFR (African America >60 (>=60 mL/min/1.73m^2); Estimated GFR (Non-African Ame >60 (>=60 mL/min/1.73m^2); Globulin 4.6 g/dL; Glucose 100 mg/dL (74-106); Potassium 4.0 mmol/L (3.5-5.1); Sodium 140 mmol/L (136-145); Total Protein 8.3 g/dL (6.4-8.2)
[2025-05-14] MEDS: 0.9 % SODIUM CHLORIDE 1,000 ML 1000 ML IV (21:13)
[2025-05-14] MEDS: METHYLPREDNISOLONE SOD SUCC PF 125 MG/2 ML VIAL IVP (21:14)
[2025-05-14] MEDS: KETOROLAC TROMETHAMINE 30 MG/ML VIAL IVP (21:14)
[2025-05-14 21:25] LABS: SARS-CoV-2 Ag NEGATIVE (NEGATIVE)
--- NOTE | 2025-05-14 23:00 | PC.NURSE ---
i gave this patient verbal and written discharge orders along with 1Rx and this patient voices yes to understanding these. at time of discharge this patient voices no concerns, needs and shows no signs of distress
== END 2025-05-14 23:00 | disposition home or self-care (01) ==
PROVIDERS: Emergency Provider Emergency Medicine; PCP Nurse Practitioner
DX: G43.909 Migraine, unspecified, not intractable, without status migrainosus (principal)
CPT/HCPCS: 36415; 70450; 80053; 85025; 85652; 86140; 87804; 87811; 96361; 96374; 96375; 99284; J1885; J2405; J2919